=== PATIENT | male | born 1970 | race Caucasian/White ===

== ENCOUNTER 2018-12-10 15:15 | Emergency (ER) | payer OTHER ==
[2018-12-10 16:25] LABS: Absolute Lymphocytes (CBC) 2.2 K/uL (0.7-4.9); Absolute Monocytes 0.8 K/uL (0.1-1.3); Absolute Neutrophil 3.3 K/uL (1.8-8.0); Eosinophils % 5.2 % (0-4.4); Hematocrit 43.8 % (39.6-49.0); Lymphocytes % 33.1 % (15.3-44.8); Monocytes % 11.3 % (3.3-12.3); RBC Red Blood Cell Count 5.22 M/uL (4.33-5.43)
[2018-12-10] MEDS ORDERED: METOCLOPRAMIDE 10 MG/2mL INJ ONE (16:28)
[2018-12-10] MEDS ORDERED: DIPHENHYDRAMINE 50 MG/ML VIAL ONE (16:28)
[2018-12-10] MEDS ORDERED: ASPIRIN 81 MG CHEWABLE TABLET ONE (16:28)
--- NOTE | 2018-12-10 16:32 | RAD REPORT ---
EXAM DESCRIPTION: CT - Head Brain Wo Cont - 12/10/2018 4:17 pm CLINICAL HISTORY: Dizziness;Headache;Numbness COMPARISON: No comparisons TECHNIQUE: All CT scans are performed using dose optimization technique as appropriate and may inclu de automated exposure control or mA/KV adjustment according to patient size. FINDINGS: No intracranial hemorrhage, hydrocephalus or extra-axial fluid collection.No areas of brai n edema or evidence of midline shift. The paranasal sinuses and mastoids are clear. The calvarium is intact. IMPRESSION: No acute intracranial abnormality.
[2018-12-10 16:39] LABS: Protime INR 0.93
[2018-12-10 16:45] LABS: ALT/SGPT 57 U/L (12-78); AST/SGOT 28 U/L (15-37); Albumin 4.3 g/dL (3.4-5.0); Alkaline Phosphatase 70 U/L (45-117); BUN Blood Urea Nitrogen 25 mg/dL (7-18); Bicarbonate 27 mmol/L (21-32); Bilirubin Direct < 0.1 mg/dL (0-0.2); Bilirubin Total 0.3 mg/dL (0.2-1.0); Glucose Level 82 mg/dL (74-106); Magnesium 2.4 mg/dL (1.8-2.4); NT PRO-BNP 6 pg/mL (<125); Potassium 3.9 mmol/L (3.5-5.1); Protein, Total 7.5 g/dL (6.4-8.2); Sodium Level 144 mmol/L (136-145); Troponin (Emerg Dept Use Only) < 0.02 ng/mL (0.0-0.045)
--- NOTE | 2018-12-10 16:48 | RAD REPORT ---
EXAM DESCRIPTION: RAD - Chest Single View - 12/10/2018 4:16 pm CLINICAL HISTORY: CHEST PAIN Chest pain. COMPARISON: <Comparisons> FINDINGS: Portable technique limits examination quality. The lungs are grossly clear. The heart is normal in size. No displaced fractures. IMPRESSION: No acute intrathoracic process suspected.
[2018-12-10 16:56] LABS: Urine Blood NEGATIVE (NEG); Urine Glucose NEGATIVE (NEG); Urine Protein NEGATIVE (NEG); Urine Specific Gravity 1.025 (1.005-1.030)
--- NOTE | 2018-12-10 17:10 | EDPHYS ---
Physician Documentation [facility] Name: Jonathon Soliz Age: 48 yrs Sex: Male : 1970 Arrival Date: 12/10/2018 Time: 15:19 Bed 30 Private MD: Unknown, Unknown ED Physician Jonathon Champagne HPI: 12/10 16:50 This 48 yrs old Male presents to ER via Ambulatory with complaints of jr8 Numbness Of Face, Headache, Chest Pressure. 16:50 The patient complains of pain to the top of head and forehead. The patient describes jr8 the headache as throbbing. Onset: The symptoms/episode began/occurred acutely, today. Associated signs and symptoms: Pertinent positives: dizziness, paresthesias, chest tightness. Severity of symptoms: At its worst the pain was moderate, in the emergency department the pain is unchanged. Headache History: The patient has had previous headaches and this one is different than previous episodes. The symptoms are alleviated by nothing. the symptoms are aggravated by lights, movement, noise. The patient has not experienced similar symptoms in the past. The patient has not recently seen a physician. Patient with history of migraines and Meniere's disease. Stated that he has on/off migraines consistently that have been worsening. Stated that was recently put on Gabapentin for them but does not take it as he should. Stated that he is having another migraine but this time with perioral and nasal region numbness and chest tightness . Historical: - Allergies: 15:32 No Known Allergies; hj - PMHx: 15:32 None; hj - PSHx: 15:32 ganglion cyst rrmoval of the R arm; hj - Immunization history:: Adult Immunizations up to date. - Social history:: Smoking status: Patient/guardian denies using tobacco. - Ebola Screening: : No symptoms or risks identified at this time. ROS: 16:50 Eyes: Negative for injury, pain, redness, and discharge, ENT: Negative for injury, jr8 pain, and discharge, Neck: Negative for injury, pain, and swelling, Respiratory: Negative for shortness of breath, cough, wheezing, and pleuritic chest pain, Abdomen/GI: Negative for abdominal pain, nausea, vomiting, diarrhea, and constipation, Back: Negative for injury and pain, MS/Extremity: Negative for injury and deformity, Skin: Negative for injury, rash, and discoloration. 16:50 Cardiovascular: Positive for chest pain, Negative for edema, orthopnea, palpitations, paroxysmal nocturnal dyspnea. 16:50 Neuro: Positive for dizziness, headache, numbness. Exam: 16:50 Eyes: Pupils equal round and reactive to light, extra-ocular motions intact. Lids and jr8 lashes normal. Conjunctiva and sclera are non-icteric and not injected. Cornea within normal limits. Periorbital areas with no swelling, redness, or edema. ENT: Nares patent. No nasal discharge, no septal abnormalities noted. Tympanic membranes are normal and external auditory canals are clear. Oropharynx with no redness, swelling, or masses, exudates, or evidence of obstruction, uvula midline. Mucous membranes moist. Neck: Trachea midline, no thyromegaly or masses palpated, and no cervical lymphadenopathy. Supple, full range of motion without nuchal rigidity, or vertebral point tenderness. No Meningismus. Cardiovascular: Regular rate and rhythm with a normal S1 and S2. No gallops, murmurs, or rubs. Normal PMI, no JVD. No pulse deficits. Respiratory: Lungs have equal breath sounds bilaterally, clear to auscultation and percussion. No rales, rhonchi or wheezes noted. No increased work of breathing, no retractions or nasal flaring. Abdomen/GI: Soft, non-tender, with normal bowel sounds. No distension or tympany. No guarding or rebound. No evidence of tenderness throughout. Back: No spinal tenderness. No costovertebral tenderness. Full range of motion. Skin: Warm, dry with normal turgor. Normal color with no rashes, no lesions, and no evidence of cellulitis. MS/ Extremity: Pulses equal, no cyanosis. Neurovascular intact. Full, normal range of motion. Neuro: Awake and alert, GCS 15, oriented to person, place, time, and situation. Cranial nerves II-XII grossly intact. Motor strength 5/5 in all extremities. Sensory grossly intact. Cerebellar exam normal. Normal gait. Vital Signs: 15:32 BP 142 / 95; Pulse 66; Resp 18; Temp 98.3(TE); Pulse Ox 96% on R/A; Weight 115.67 kg; hj Height 5 ft. 11 in. (180.34 cm); Pain 6/10; 16:00 BP 115 / 76; Pulse 72; Resp 18 S; Temp 98.2(O); Pulse Ox 95% on R/A; ca1 16:46 BP 113 / 76; Pulse 61; Resp 16 S; Temp 98(O); Pulse Ox 95% on R/A; ca1 17:15 BP 114 / 75; Pulse 61; Resp 17 S; Temp 98; Pulse Ox 95% on R/A; ca1 15:32 Body Mass Index 35.57 (115.67 kg, 180.34 cm) hj NIH Stroke Scale Scores: 16:50 NIHSS Score: 0 jr8 MDM: 15:52 Patient medically screened. 8 17:07 Differential diagnosis: cluster headache, cerebral vascular accident, hyponatremia, jr8 intracerebral hemorrhage, migraine, neoplasm, sinusitis, subdural hematoma, tension headache, trigeminal neuralgia, chest pain, AK, chest wall pain, costochondritis, esophagitis, biliary colic, PE, Unstable Angina. Data reviewed: vital signs, nurses notes, lab test result(s), EKG, radiologic studies, CT scan, plain films. Data interpreted: Pulse oximetry: on room air is 95 %. Interpretation: normal. 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 Response to treatment: the patient's symptoms have mildly improved after treatment. 12/10 16:03 Order name: Basic Metabolic Panel [facility] 12/10 16:03 Order name: CBC with Diff; Complete Time: 16:49 12/10 16:03 Order name: LFT's 12/10 16:03 Order name: Magnesium; Complete Time: 16:49 12/10 16:03 Order name: NT PRO-BNP; Complete Time: 16:49 12/10 16:03 Order name: PT-INR; Complete Time: 17:09 12/10 16:03 Order name: Troponin (emerg Dept Use Only); Complete Time: 16:49 12/10 16:03 Order name: XRAY Chest (1 view); Complete Time: 16:49 [facility] 12/10 16:03 Order name: CT Head Brain wo Cont; Complete Time: 16:49 12/10 16:04 Order name: Basic Metabolic Panel; Complete Time: 16:49 EDMS 12/10 16:04 Order name: Liver (Hepatic) Function; Complete Time: 16:49 EDMS 12/10 16:36 Order name: Urine Dipstick--Ancillary (enter results); Complete Time: 17:02 eb 12/10 16:03 Order name: EKG; Complete Time: 16:04 [facility] 12/10 16:03 Order name: Cardiac monitoring; Complete Time: 16:12 [facility] 12/10 16:03 Order name: EKG - Nurse/Tech; Complete Time: 16:12 12/10 16:03 Order name: IV Saline Lock; Complete Time: 16:12 12/10 16:03 Order name: Labs collected and sent; Complete Time: 16:12 [facility] 12/10 16:03 Order name: O2 Per Protocol; Complete Time: 16:12 12/10 16:03 Order name: O2 Sat Monitoring; Complete Time: 16:12 Administered Medications: 16:20 Drug: Aspirin Chewable Tablet 324 mg Route: PO; ca1 17:28 Follow up: Response: No adverse reaction; Pain is decreased ca1 16:20 Drug: Reglan 10 mg Route: IVP; Site: right antecubital; ca1 17:28 Follow up: Response: No adverse reaction; Pain is decreased ca1 16:25 Drug: Benadryl 25 mg Route: IVP; Site: right antecubital; ca1 17:29 Follow up: Response: No adverse reaction; Pain is decreased ca1 Disposition: 12/11 06:57 Co-signature as Attending Physician, Jonathon Champagne MD I agree with the assessment and kdr plan of care. Disposition: 12/10/18 17:09 Discharged to Home. Impression: Chest pain, unspecified, Migraine. - Condition is Stable. - Discharge Instructions: Nonspecific Chest Pain, Migraine Headache. - Medication Reconciliation Form, Thank You Letter, Antibiotic Education, Prescription Opioid Use form. - Follow up: Private Physician; When: 2 - 3 days; Reason: Recheck today's complaints, Continuance of care, Re-evaluation by your physician. - Problem is new. - Symptoms have improved. NIH Stroke Scale - NIH Stroke Score Date: 12/10/2018 Time: 16:50 Total Score = 0 1a. Level of Consciousness (LOC) - 0(Alert) 1b. Level of Consciousness (LOC) (Year \T\ Age) - 0(Both) 1c. LOC Commands (Open \T\ Closes Eyes/[place] Debeader) - 0(Both) 2. Best Gaze (Lateral Gaze Paresis) - 0(Normal) 3. Visual Field Loss - 0(No visual loss) 4. Facial Palsy - 0(Normal) 5a. Left Arm: Motor (10-second hold) - 0(No drift) 5b. Right Arm: Motor (10-second hold) - 0(No drift) 6a. Left Leg: Motor (5-second hold - always test supine) - 0(No drift) 6b. Right Leg: Motor (5-second hold - always test supine) - 0(No drift) 7. Limb Ataxia (finger/nose \T\ heel/contreras - test with eyes open) - 0(Absent) 8. Sensory Loss (pinprick arms/legs/face) - 0(Normal) 9. Best Language: Aphasia (description/naming/reading) - 0(No aphasia) 10. Dysarthria (speech clarity - read or repeat words) - 0(Normal) 11. Extinction and Inattention (visual/tactile/auditory/spatial/personal) - 0(No abnormality) Initials: cuca Signatures: Dispatcher [employer] EDMS Jonathon Champagne MD MD [facility] Bud Garrett PA PA jr8 Vinod Lacy RN RN Dai Howard RN RN ca1 Corrections: (The following items were deleted from the chart) 12/10 17:30 17:09 12/10/2018 17:09 Discharged to Home. Impression: Chest pain, unspecified; ca1 Migraine. Condition is Stable. Forms are Medication Reconciliation Form, Thank You Letter, Antibiotic Education, Prescription Opioid Use. Follow up: Private Physician; When: 2 - 3 days; Reason: Recheck today's complaints, Continuance of care, Re-evaluation by your physician. Problem is new. Symptoms have improved. jrBenito
--- NOTE | 2018-12-10 17:10 | ER ---
Nurse's Notes [facility] Name: Jonathon Soliz Age: 48 yrs Sex: Male : 1970 Arrival Date: 12/10/2018 Time: 15:19 Bed 30 Private MD: Unknown, Unknown Diagnosis: Chest pain, unspecified;Migraine Presentation: 12/10 15:28 Presenting complaint: Patient states: around 4 am today, i have this headache and hj numbness on the face, more on the nose and lips; reports dizziness; reports heavy type of pain on the chest; denies radiating pain ; reports SOB;denies N/V; no facial droop; no drift on any extremities; A\T\O x 4 in triage;. Transition of care: patient was not received from another setting of care. Onset of symptoms was December 10, 2018. Risk Assessment: Do you want to hurt yourself or someone else? Patient reports no desire to harm self or others. Initial Sepsis Screen: Does the patient meet any 2 criteria? No. Patient's initial sepsis screen is negative. Does the patient have a suspected source of infection? No. Patient's initial sepsis screen is negative. Care prior to arrival: None. 15:28 Method Of Arrival: Ambulatory 15:28 Acuity: JOSE 3 hj Historical: - Allergies: 15:32 No Known Allergies; hj - PMHx: 15:32 None; hj - PSHx: 15:32 ganglion cyst rrmoval of the R arm; hj - Immunization history:: Adult Immunizations up to date. - Social history:: Smoking status: Patient/guardian denies using tobacco. - Ebola Screening: : No symptoms or risks identified at this time. Screenin:00 Abuse screen: Denies threats or abuse. Denies injuries from another. Nutritional ca1 screening: No deficits noted. Tuberculosis screening: No symptoms or risk factors identified. Fall Risk None identified. Assessment: 16:00 General: Appears in no apparent distress. comfortable, Behavior is calm, cooperative, ca1 appropriate for age. Pain: Complains of pain in chest Pain does not radiate. Pain currently is 6 out of 10 on a pain scale. Quality of pain is described as pressure, Pain began 0800 TODAY Is intermittent. Neuro: Level of Consciousness is awake, alert, obeys commands, Oriented to person, place, time, situation. Neuro: Reports headache. Cardiovascular: Heart tones S1 S2 present Capillary refill < 3 seconds Patient's skin is warm and dry. Rhythm is sinus rhythm. Respiratory: Airway is patent Respiratory effort is even, unlabored, Respiratory pattern is regular, symmetrical. GI: Abdomen is round non-distended, Bowel sounds present X 4 quads. Abd is soft and non tender Reports nausea. : No deficits noted. No signs and/or symptoms were reported regarding the genitourinary system. EENT: No deficits noted. No signs and/or symptoms were reported regarding the EENT system. Derm: Skin is intact, is healthy with good turgor, Skin is pink, warm \T\ dry. Musculoskeletal: Circulation, motion, and sensation intact. Capillary refill < 3 seconds. 16:46 Reassessment: Patient appears in no apparent distress at this time. Patient and/or ca1 family updated on plan of care and expected duration. Pain level reassessed. Patient is alert, oriented x 3, equal unlabored respirations, skin warm/dry/pink. 17:15 Reassessment: Patient appears in no apparent distress at this time. Patient is alert, ca1 oriented x 3, equal unlabored respirations, skin warm/dry/pink. Patient states feeling better. Vital Signs: 15:32 BP 142 / 95; Pulse 66; Resp 18; Temp 98.3(TE); Pulse Ox 96% on R/A; Weight 115.67 kg; Height 5 ft. 11 in. (180.34 cm); Pain 6/10; 16:00 BP 115 / 76; Pulse 72; Resp 18 S; Temp 98.2(O); Pulse Ox 95% on R/A; ca1 16:46 BP 113 / 76; Pulse 61; Resp 16 S; Temp 98(O); Pulse Ox 95% on R/A; ca1 17:15 BP 114 / 75; Pulse 61; Resp 17 S; Temp 98; Pulse Ox 95% on R/A; ca1 15:32 Body Mass Index 35.57 (115.67 kg, 180.34 cm) NIH Stroke Scale Scores: 16:50 NIHSS Score: 0 jr8 ED Course: 15:19 Patient arrived in ED. ag5 15:20 Unknown, Unknown is Private Physician. ag5 15:29 EKG done, by glass technician/installer. reviewed by Jonathon Champagne MD. 3 15:31 Triage completed. hj 15:33 Arm band placed on right wrist. hj 15:50 Bud Garrett PA is PHCP. jr8 15:50 Jonathon Champagne MD is Attending Physician. jr8 16:00 Patient has correct armband on for positive identification. Placed in gown. Bed in low ca1 position. Call light in reach. Side rails up X 1. groundwater monitoring technician on. Pulse ox on. NIBP on. Warm blanket given. 16:00 No provider procedures requiring assistance completed. Inserted saline lock: 18 gauge ca1 in right antecubital area, using aseptic technique. Blood collected. 16:06 Dai Howard, JACEY is Primary Nurse. ca1 16:15 X-ray completed. Portable x-ray completed in exam room. Patient tolerated procedure sw well. 16:16 XRAY Chest (1 view) In Process Unspecified. EDMS 16:17 CT Head Brain wo Cont In Process Unspecified. EDMS 16:17 CT completed. Patient tolerated procedure well. Patient moved to CT. Patient moved back sc from CT. 17:30 IV discontinued, intact, bleeding controlled, No redness/swelling at site. Pressure ca1 dressing applied. Administered Medications: 16:20 Drug: Aspirin Chewable Tablet 324 mg Route: PO; ca1 17:28 Follow up: Response: No adverse reaction; Pain is decreased ca1 16:20 Drug: Reglan 10 mg Route: IVP; Site: right antecubital; ca1 17:28 Follow up: Response: No adverse reaction; Pain is decreased ca1 16:25 Drug: Benadryl 25 mg Route: IVP; Site: right antecubital; ca1 17:29 Follow up: Response: No adverse reaction; Pain is decreased ca1 Outcome: 17:09 Discharge ordered by . jr8 17:30 Discharged to home ambulatory, with significant other. ca1 17:30 Condition: stable 17:30 Discharge instructions given to patient, Instructed on discharge instructions, follow up and referral plans. Demonstrated understanding of instructions, follow-up care. 17:30 Patient left the ED. ca1 NIH Stroke Scale - NIH Stroke Score Date: 12/10/2018 Time: 16:50 Total Score = 0 1a. Level of Consciousness (LOC) - 0(Alert) 1b. Level of Consciousness (LOC) (Year \T\ Age) - 0(Both) 1c. LOC Commands (Open \T\ Closes Eyes/Quarter Folder) - 0(Both) 2. Best Gaze (Lateral Gaze Paresis) - 0(Normal) 3. Visual Field Loss - 0(No visual loss) 4. Facial Palsy - 0(Normal) 5a. Left Arm: Motor (10-second hold) - 0(No drift) 5b. Right Arm: Motor (10-second hold) - 0(No drift) 6a. Left Leg: Motor (5-second hold - always test supine) - 0(No drift) 6b. Right Leg: Motor (5-second hold - always test supine) - 0(No drift) 7. Limb Ataxia (finger/nose \T\ heel/contreras - test with eyes open) - 0(Absent) 8. Sensory Loss (pinprick arms/legs/face) - 0(Normal) 9. Best Language: Aphasia (description/naming/reading) - 0(No aphasia) 10. Dysarthria (speech clarity - read or repeat words) - 0(Normal) 11. Extinction and Inattention (visual/tactile/auditory/spatial/personal) - 0(No abnormality) Initials: jr8 Signatures: Dispatcher [employer] EDMS Bud Garrett PA PA jr8 Julia Saucedo Henry, RN RN Tamir Chin Shakira 3 Dai Howard RN RN ca1 Jena, Kamaljit ag5 Corrections: (The following items were deleted from the chart) 15:33 15:32 Pulse 66bpm; Resp 18bpm; Pulse Ox 96% RA; Temp 98.3F Temporal; 115.67 kg; hj Height 5 ft. 11 in.; BMI: 35.5; Pain 6/10; hj 15:34 15:28 Presenting complaint: Patient states: around 4 am today, i have this hj headache and numbness on the face, more on the nose and lips; reports dizziness; reports heavy type of pain on the chest; denies radiating pain ; reports SOB;denies N/V; 16:45 16:00 Fall Risk ca1 ca1
--- NOTE | 2018-12-11 07:13 | EKG ---
Test Date: 2018-12-10 Test Time: 15:29:56 Dough Cutter: SWAPNA MEASUREMENT RESULTS: Intervals: Rate: 69 SD: 208 QRSD: 98 QT: 388 QTc: 415 [place]: P: 12 SD: 208 QRS: -27 T: 34 INTERPRETIVE STATEMENTS: Normal sinus rhythm Septal infarct, age undetermined Abnormal ECG No previous ECG available for comparison Electronically Signed On 12-11-18 07:11:24 CDT by Oleg Ibarra
== END 2018-12-10 17:30 | disposition home or self-care (01) ==
LOC: ER 15:15
DX: R07.9 Chest pain, unspecified (principal); G43.909 Migraine, unspecified, not intractable, without status migrainosus; H81.09 Meniere's disease, unspecified ear
CPT/HCPCS: 36415; 70450; 71045; 80048; 80076; 81003; 83735; 83880; 84484; 85025; 85610; 93005; 96374; 96375; 99285; J2765

== ENCOUNTER 2021-03-22 13:37 | Inpatient (IN) | payer OTHER ==
--- OUTSIDE RECORDS SUMMARY | 2021-03-22 13:40 | XMS REPORT | Continuity of Care Document ---
:1970 Author Organization [facility] t Address [address] [place] [address] Care Team Providers Name Role Phone Unavailable Unavailable Unavailable Problems This patient has no known problems. Allergies, Adverse Reactions, Alerts This patient has no known allergies or adverse reactions. Medications This patient has no known medications. Procedures This patient has no known procedures. Encounters Start End Encounter Admission Attending Care Care Encounter Source Date/Time Date/Time Type Type Clinicians Facility Department ID 2020-09-11 2020-09-11 Outpatient [facility] [id number] [facility] 00:00:00 00:00:00 [facility] 2020-08-29 2020-08-29 Outpatient [facility] [id number] [facility] 00:00:00 00:00:00 [facility] Results This patient has no known results.
[2021-03-22 15:02] LABS: Absolute Lymphocytes (CBC) 0.8 K/uL (0.7-4.9); Basophils % 0.8 % (0-1.3); Lymphocytes % 11.3 % (15.3-44.8); MPV 7.7 fL (7.6-11.3); RBC Red Blood Cell Count 4.89 M/uL (4.33-5.43)
[2021-03-22] MEDS ORDERED: dexAMETHasone 10 MG/ML VIAL ONE (15:10)
[2021-03-22 15:14] LABS: ALT/SGPT 33 U/L (12-78); AST/SGOT 28 U/L (15-37); Albumin 2.7 g/dL (3.4-5.0); Alkaline Phosphatase 112 U/L (45-117); BUN Blood Urea Nitrogen 25 mg/dL (7-18); Bicarbonate 27 mmol/L (21-32); Bilirubin Direct 0.3 mg/dL (0-0.2); Bilirubin Total 0.9 mg/dL (0.2-1.0); Glucose Level 99 mg/dL (74-106); Magnesium 2.7 mg/dL (1.8-2.4); NT PRO-BNP 153 pg/mL (<125); Potassium 3.1 mmol/L (3.5-5.1); Protein, Total 6.8 g/dL (6.4-8.2); Sodium Level 145 mmol/L (136-145); Troponin (Emerg Dept Use Only) < 0.02 ng/mL (0.0-0.045)
[2021-03-22 15:23] LABS: Protime INR 1.26
--- NOTE | 2021-03-22 15:45 | RAD REPORT ---
EXAM DESCRIPTION: RAD - Chest Single View - 03/22/2021 3:33 pm CLINICAL HISTORY: SOB Chest pain. COMPARISON: Chest Single View dated 12/10/2018 FINDINGS: Portable technique limits examination quality. There is moderate confluent bilateral pulmonary opacities are noted probably representing COVID-19 in fection. The heart is normal in size. No displaced fractures.
[2021-03-22] MEDS ORDERED: POTASSIUM CL SA 10 MEQ TAB PO ONE (16:12)
[2021-03-22 16:21] LABS: Ferritin 812.5 ng/mL (26-388)
--- NOTE | 2021-03-22 17:01 | RAD REPORT ---
EXAM DESCRIPTION: CT - Chest For Pe Angio - 03/22/2021 4:40 pm CLINICAL HISTORY: Chest pain. SOB COMPARISON: No comparisons TECHNIQUE: CT angiogram of the pulmonary arteries was performed with MIP. All CT scans are performed using dose optimization technique as appropriate and may include automated exposure control or mA/KV adjustment according to patient size. FINDINGS: No evidence of pulmonary thromboembolism. No acute aortic finding demonstrated. Moderate to severe bilateral confluent airspace opacities are present greatest in the lower lobes. Th is is most compatible with underlying COVID-19 infection. No significant pericardial or pleural fluid. No concerning bony finding. IMPRESSION: No evidence of pulmonary thromboembolism. Moderate to severe lung findings most compatible with COVID-19 infection.
--- NOTE | 2021-03-22 17:26 | EDPHYS ---
Physician Documentation [facility] Name: Jonathon Soliz Age: 50 yrs Sex: Male : 1970 Arrival Date: 03/22/2021 Time: 13:44 Bed 15 Private MD: ED Physician Israel Oh HPI: 03/22 14:17 This 50 yrs old Male presents to ER via Ambulatory with complaints of COVID+, jmm Breathing Difficulty. 14:17 Onset: The symptoms/episode began/occurred gradually, 11 day(s) ago. Duration: The jmm symptoms are continuous, and are steadily getting worse. The patient's shortness of breath is aggravated by exertion, light activity, walking. Associated signs and symptoms: Pertinent positives: non-productive cough, Pertinent negatives: hemoptysis. This is a 50-year-old male no chronic medical conditions presents emerged part with complaints of cough and progressively worsening shortness of breath over the past 11 days. Patient was evaluated in urgent care and prescribed azithromycin. Patient states he has experienced little relief. Patient states particular, that the shortness of breath is worse on exertion and he feels dizzy like he is about to pass out. Patient also complains of chest pain. Historical: - Allergies: 13:55 No Known Allergies; kg - Home Meds: 13:55 None [Active]; kg - PMHx: 13:55 None; kg - PSHx: 13:55 Vasectomy; Right wrist sx; Lasik eye sx; kg - Immunization history:: Adult Immunizations not up to date, Client reports having NOT received the Covid vaccine. - Social history:: Smoking status: Patient denies any tobacco usage or history of. Patient uses alcohol, occasionally. ROS: 14:17 Cardiovascular: Negative for chest pain, palpitations, and edema. jmm 14:17 Abdomen/GI: Negative for abdominal pain, nausea, vomiting, diarrhea, and constipation, Back: Negative for injury and pain. 14:17 Constitutional: Positive for body aches, fatigue. 14:17 Respiratory: Positive for shortness of breath. 14:17 Neuro: Positive for weakness. 14:17 All other systems are negative. Exam: 14:17 Constitutional: This is a well developed, well nourished patient who is awake, alert, jmm and in no acute distress. Head/Face: atraumatic. Eyes: EOMI, no conjunctival erythema appreciated ENT: Moist Mucus Membranes Neck: Trachea midline, Supple Chest/axilla: Normal chest wall appearance and motion. Cardiovascular: Regular rate and rhythm. No edema appreciated 14:17 Abdomen/GI: Non distended, soft Back: Normal ROM Skin: General appearance color normal MS/ Extremity: Moves all extremities, no obvious deformities appreciated, no edema noted to the lower extremities Neuro: Awake and alert, normal gait Psych: Behavior is normal, Mood is normal, Patient is cooperative and pleasant 14:17 Respiratory: mild respiratory distress is noted, Respirations: labored breathing, that is moderate, Breath sounds: decreased breath sounds, that are moderate, are scattered. 16:00 ECG was reviewed by the Attending Physician. rn Vital Signs: 13:51 BP 121 / 73; Pulse 66; Resp 28; Temp 98.8(O); Pulse Ox 90% on R/A; Weight 93.44 kg (R); kg Height 5 ft. 10 in. (177.80 cm) (R); Pain 7/10; 14:43 BP 117 / 64; Pulse 63; Resp 22; Pulse Ox 97% on 2 lpm NC; vg1 15:53 BP 119 / 67; Pulse 66; Resp 24; Pulse Ox 95% on 2 lpm NC; vg1 16:59 BP 137 / 80; Pulse 62; Resp 26; Pulse Ox 97% on 2 lpm NC; vg1 03/23 20:06 BP 143 / 84; Pulse 73; Resp 18; Pulse Ox 94% ; ms4 03/22 13:51 Body Mass Index 29.56 (93.44 kg, 177.80 cm) kg MDM: 03/22 14:51 Patient medically screened. [facility] 17:23 Data reviewed: vital signs, nurses notes. Counseling: I had a detailed discussion with [facility] the patient and/or guardian regarding: the historical points, exam findings, and any diagnostic results supporting the discharge/admit diagnosis, lab results, the need for further work-up and treatment in the hospital. ED course: I discussed the patient with Dr. Kelsey whom accepted the patient to his service. . 03/22 14:17 Order name: Basic Metabolic Panel; Complete Time: 15:17 [facility] 03/22 14:17 Order name: CBC with Diff; Complete Time: 15:19 [facility] 03/22 14:17 Order name: LFT's; Complete Time: 15:17 [facility] 03/22 14:17 Order name: Magnesium; Complete Time: 15:17 [facility] 03/22 14:17 Order name: NT PRO-BNP; Complete Time: 15:17 [facility] 03/22 14:17 Order name: PT-INR; Complete Time: 15:33 [facility] 03/22 14:17 Order name: Troponin (emerg Dept Use Only); Complete Time: 15:17 [facility] 03/22 14:17 Order name: D-Dimer; Complete Time: 15:33 [facility] 03/22 15:34 Order name: CRP; Complete Time: 16:23 [facility] 03/22 15:34 Order name: Ferritin; Complete Time: 16:23 [facility] 03/22 17:44 Order name: Comprehensive Metabolic Panel EDMS 03/22 17:44 Order name: Comprehensive Metabolic Panel; Complete Time: 15:20 [facility] 03/22 17:44 Order name: CBC with Automated Diff EDMS 03/22 17:44 Order name: CBC with Automated Diff; Complete Time: 15:20 EDMS 03/22 17:45 Order name: Ferritin EDMS 03/22 17:45 Order name: Ferritin EDMS 03/22 17:46 Order name: D-Dimer EDMS 03/22 17:46 Order name: D-Dimer; Complete Time: 15:20 EDMS 03/22 17:46 Order name: D-Dimer EDMS 03/22 17:46 Order name: Ferritin EDMS 03/22 17:46 Order name: Ferritin EDMS 03/22 17:46 Order name: Ferritin EDMS 03/22 17:46 Order name: Ferritin EDMS 03/22 17:46 Order name: Ferritin EDMS 03/22 17:46 Order name: Lactic Dehydrogenase EDMS 03/22 17:46 Order name: Lactic Dehydrogenase EDMS 03/22 17:46 Order name: Lactic Dehydrogenase EDMS 03/22 17:46 Order name: Lactic Dehydrogenase EDMS 03/22 17:46 Order name: Lactic Dehydrogenase EDMS 03/22 17:46 Order name: Lactic Dehydrogenase EDMS 03/22 14:17 Order name: EKG; Complete Time: 14:18 [facility] 03/22 14:17 Order name: Cardiac monitoring; Complete Time: 14:24 [facility] 03/22 14:17 Order name: EKG - Nurse/Tech; Complete Time: 14:41 [facility] 03/22 14:17 Order name: IV Saline Lock; Complete Time: 14:41 [facility] 03/22 14:17 Order name: Labs collected and sent; Complete Time: 14:41 [facility] 03/22 14:17 Order name: O2 Per Protocol; Complete Time: 14:24 [facility] 03/22 14:17 Order name: O2 Sat Monitoring; Complete Time: 14:24 [facility] 03/22 15:32 Order name: Chest Single View; Complete Time: 15:47 [facility] 03/22 15:34 Order name: CT Chest For PE Angio; Complete Time: 17:01 [facility] 03/22 17:44 Order name: Regular [facility] 03/22 17:46 Order name: Lactic Dehydrogenase [facility] 03/22 17:46 Order name: D-Dimer [facility] 03/22 17:46 Order name: D-Dimer [facility] 03/22 17:46 Order name: D-Dimer [facility] 03/22 17:46 Order name: D-Dimer [facility] 03/23 06:24 Order name: Lactic Dehydrogenase; Complete Time: 15:20 EDMS 03/23 06:38 Order name: Ferritin; Complete Time: 15:20 EDMS 03/23 08:03 Order name: Glucose, Ancillary Testing; Complete Time: 15:20 EDMS 03/23 12:39 Order name: Glucose, Ancillary Testing; Complete Time: 15:20 EDMS 03/23 17:22 Order name: Glucose, Ancillary Testing; Complete Time: 17:27 EDMS EC:00 Rate is 60 beats/min. Rhythm is regular. QRS [place] is Normal. ND interval is normal. QRS rn interval is normal. QT interval is normal. No Q waves. T waves are Normal. No ST changes noted. Clinical impression: Normal ECG. Interpreted by me. Reviewed by me. Administered Medications: 14:57 Drug: Decadron - Dexamethasone 10 mg Route: IVP; Site: right forearm; vg1 15:48 Follow up: Response: No adverse reaction; No change in condition vg1 15:53 Drug: Potassium Chloride 40 mEq Route: PO; vg1 17:24 Follow up: Response: No adverse reaction vg1 Disposition Summary: 03/22/21 17:26 Hospitalization Ordered Hospitalization Status: Observation [facility] Provider: Omitogun, Dominic jmm Condition: Stable jmm Problem: new jmm Symptoms: are unchanged jmm Bed/Room Type: Standard jmm Location: Telemetry/MedSurg (observation)(03/23/21 17:53) eb Room Assignment: 403(03/23/21 17:53) eb Diagnosis - Coronavirus infection, unspecified - Hypoxia jmm Forms: - Medication Reconciliation Form jmm - SBAR form jmm Addendum: 03/26/2021 07:02 Co-signature as Attending Physician, Israel Oh MD I agree with the assessment and r n plan of care. Attestation: The patient's history, exam findings, diagnostics, and a summary of any interventions or procedures was reviewed in detail with Kenrick MEYER. Signatures: Dispatcher [employer] EDKY Kenrick iVnson PA PA [facility] Israel Oh MD MD rn Botello, Elizabeth eb Garcia, Victoria RN RN vg1 Trim, John Paul tt3 Ramona Hines, RN RN kg Corrections: (The following items were deleted from the chart) 03/22 15:32 13:59 Chest Pa And Lat (2 Views)+[id number] ordered. EDKY EDMS 22:12 17:26 Telemetry/MedSurg (observation) jmm tt3 22:12 17:26 jmm tt3 22:12 22:12 tt3 tt3 03/23 17:53 03/22 22:12 [facility] ER HOLD tt3 eb 03/23 17:53 03/22 22:12 ERHOLD- tt3 eb
--- NOTE | 2021-03-22 17:26 | ER ---
Nurse's Notes [facility] Name: Jonathon Soliz Age: 50 yrs Sex: Male : 1970 Arrival Date: 03/22/2021 Time: 13:44 Bed 15 Private MD: Diagnosis: Coronavirus infection, unspecified-Hypoxia Presentation: 03/22 13:51 Chief complaint: Patient states: SOB, chest pain x 5 days. Pt was diagnosed 03/13 COVID kg + at Urgent care and received Z pack. Chief complaint:. Coronavirus screen: Client denies travel out of the [place] in the last 14 days. At this time, unable to obtain information related to travel outside the [place] Ebola Screen: Patient negative for fever greater than or equal to 101.5 degrees Fahrenheit, and additional compatible Ebola Virus Disease symptoms Patient denies exposure to infectious person. Patient denies travel to an Ebola-affected area in the 21 days before illness onset. Initial Sepsis Screen: Does the patient meet any 2 criteria? RR > 20 per min. No. Patient's initial sepsis screen is negative. Does the patient have a suspected source of infection? Yes: Productive cough/pneumonia No. Patient's initial sepsis screen is negative. Risk Assessment: Do you want to hurt yourself or someone else? Patient reports no desire to harm self or others. Onset of symptoms was March 17, 2021. 13:51 Method Of Arrival: Ambulatory kg 13:51 Acuity: JOSE 3 kg Triage Assessment: 13:55 General: Appears in no apparent distress. Behavior is calm, cooperative, appropriate kg for age, quiet. Pain: Complains of pain in chest and abdomen Pain radiates to Generalized. Respiratory: Reports shortness of breath cough that is non-productive, pain with respiration Pain is 8 out of 10 on a pain scale. Onset: The symptoms/episode began/occurred gradually, the patient has moderate shortness of breath. Historical: - Allergies: 13:55 No Known Allergies; kg - Home Meds: 13:55 None [Active]; kg - PMHx: 13:55 None; kg - PSHx: 13:55 Vasectomy; Right wrist sx; Lasik eye sx; kg - Immunization history:: Adult Immunizations not up to date, Client reports having NOT received the Covid vaccine. - Social history:: Smoking status: Patient denies any tobacco usage or history of. Patient uses alcohol, occasionally. Screenin:58 Abuse screen: Denies threats or abuse. Denies injuries from another. Nutritional kg screening: No deficits noted. Tuberculosis screening: No symptoms or risk factors identified. Fall Risk None identified. Assessment: 13:58 Respiratory: Airway is patent Trachea midline Respiratory effort is even, labored, kg shallow, Respiratory pattern is tachypnea. 14:42 General: Appears in no apparent distress. uncomfortable, Behavior is calm, cooperative. vg1 Pain: Complains of pain in chest Pain currently is 7 out of 10 on a pain scale. Neuro: Level of Consciousness is awake, alert, obeys commands, Oriented to person, place, time, situation. Cardiovascular: Rhythm is sinus rhythm. Respiratory: Reports shortness of breath at rest on exertion cough that is pain with cough pain with respiration Airway is patent Respiratory effort is even, labored, Respiratory pattern is tachypnea Breath sounds with crackles in right posterior lower lobe. GI: No signs and/or symptoms were reported involving the gastrointestinal system. : No signs and/or symptoms were reported regarding the genitourinary system. EENT: pt has hearing aids in left and right ear. Derm: Skin is intact, Skin is pink, warm \T\ dry. Musculoskeletal: Circulation, motion, and sensation intact. 15:53 Reassessment: Patient appears in no apparent distress at this time. No changes from vg1 previously documented assessment. Patient and/or family updated on plan of care and expected duration. Pain level reassessed. Patient is alert, oriented x 3, equal unlabored respirations, skin warm/dry/pink. 16:55 Reassessment: Patient appears in no apparent distress at this time. Patient and/or vg1 family updated on plan of care and expected duration. Pain level reassessed. Patient is alert, oriented x 3, equal unlabored respirations, skin warm/dry/pink. Pt stated went to restroom after CT scan and stated felt 'really winded'. Provider notified. 03/23 19:59 Reassessment: report given to JACEY Sim patient to be transported to 4th floor. ms4 Vital Signs: 03/22 13:51 BP 121 / 73; Pulse 66; Resp 28; Temp 98.8(O); Pulse Ox 90% on R/A; Weight 93.44 kg (R); kg Height 5 ft. 10 in. (177.80 cm) (R); Pain 7/10; 14:43 BP 117 / 64; Pulse 63; Resp 22; Pulse Ox 97% on 2 lpm NC; vg1 15:53 BP 119 / 67; Pulse 66; Resp 24; Pulse Ox 95% on 2 lpm NC; vg1 16:59 BP 137 / 80; Pulse 62; Resp 26; Pulse Ox 97% on 2 lpm NC; vg1 03/23 20:06 BP 143 / 84; Pulse 73; Resp 18; Pulse Ox 94% ; ms4 03/22 13:51 Body Mass Index 29.56 (93.44 kg, 177.80 cm) kg ED Course: 03/22 13:44 Patient arrived in ED. mr 13:55 Triage completed. kg 13:55 Arm band placed on right wrist. kg 13:58 Patient has correct armband on for positive identification. kg 13:58 No provider procedures requiring assistance completed. kg 14:17 Kenrick Vinson PA is PHCP. [facility] 14:17 Israel Oh MD is Attending Physician. [facility] 14:18 Rashmi Bernal, JACEY is Primary Nurse. vg1 14:38 EKG done, by ED staff, reviewed by Kenrick MEYER. dh3 14:43 Initial lab(s) drawn, by fl, sent to lab. Inserted saline lock: 20 gauge in right dh3 forearm, using aseptic technique. Blood collected. 15:32 Chest Single View In Process Unspecified. EDMS 16:40 CT Chest For PE Angio In Process Unspecified. EDMS 17:10 patient's oxygen was 98% on 2 Liters, during ambulation patient's oxygen dropped to 89% dh3 on room air. 17:25 Dominic Snow MD is Hospitalizing Provider. [facility] 03/23 06:32 Primary Nurse role handed off by Rashmi Bernal, RN eb Administered Medications: 03/22 14:57 Drug: Decadron - Dexamethasone 10 mg Route: IVP; Site: right forearm; vg1 15:48 Follow up: Response: No adverse reaction; No change in condition vg1 15:53 Drug: Potassium Chloride 40 mEq Route: PO; vg1 17:24 Follow up: Response: No adverse reaction vg1 Outcome: 17:26 Decision to Hospitalize by Provider. melly 03/23 20:17 Patient left the ED. ms4 Signatures: Dispatcher [employer] EDMS Kenrick Vinson PA PA [facility] Edilma Trujillo, Marilu 3 Aliya Ortega Victoria, RN RN vg1 Ramona Hines RN RN kg Yelitza Ferrer RN RN ms4 Corrections: (The following items were deleted from the chart) 03/22 16:24 15:53 BP 199 / 67; Pulse 66bpm; Resp 24bpm; Pulse Ox 95% 2 lpm Nasal Cannula; vg1 vg1 16:48 14:42 EENT: No signs and/or symptoms were reported regarding the EENT system. vg1 vg1
[2021-03-22] MEDS ORDERED: ACETAMINOPHEN 325 MG TABLET PO PRN (17:39)
[2021-03-22] MEDS ORDERED: ONDANSETRON 4 MG/2 ML VIAL IV PRN (17:40)
--- NOTE | 2021-03-22 17:55 | P.HP ---
Certification for Inpatient Patient admitted to: Inpatient With expected LOS: >2 Midnights Patient will require the following post-hospital care: None Practitioner: I am a practitioner with admitting privileges, knowledge of patient current condition, hospital course, and medical plan of care. Services: Services provided to patient in accordance with Admission requirements found in Title 42 Section 412.3 of the Code of Federal Regulations Patient History Date of Service: 03/22/21 Reason for admission: COVID-19 disease. History of Present Illness: 50-year-old male patient was no significant medical history who was evaluated for episode of worsening shortness of breath in the ER. He had issues with lethargy mildly and worsening cough and shortness of breath for the past 10 days. He was tested for COVID-19 disease on 13 March and he had used a Z-Pack on outpatient but did not improve so he decided to come to the ER. He has some difficulty breathing and chest pain on deep inspiration. He also has loss of appetite, mild diarrhea and general malaise. He denies overt episode of nausea, vomiting, headaches. He denies overt fever or chills. He had a chest x-ray done that revealed significant opacification of the lung field and had slightly reduced oxygen saturation of 88% on room. he was put on supplemental oxygen and he was asked to be admitted for inpatient care. Home medications list reviewed: Yes - Past Medical/Surgical History Diabetic: No Past Medical History: Patient denies medical history Review of Systems General: Weakness, Malaise Eyes: Unremarkable ENT: Nose Congestion Respiratory: Cough, Shortness of Breath, Pleuritic Pain Cardiovascular: Chest Pain Gastrointestinal: Other (poor appetite.), Unremarkable Genitourinary: Unremarkable Musculoskeletal: Unremarkable Neurological: Unremarkable Physical Examination - Vital Signs Temperature: 98.7 F Blood Pressure: 151/71 Pulse: 67 Respirations: 34 - Physical Exam General: Alert, Oriented x3, Mild distress HEENT: Atraumatic, Normocephalic Neck: Supple Respiratory: Diminished Cardiovascular: Regular rate/rhythm, Normal S1 S2 Gastrointestinal: Soft and benign Musculoskeletal: No swelling Neurological: Normal speech, Normal strength at 5/5 x4 extr, Cranial nerves 3-12 intact - Studies Laboratory Data (last 24 hrs) 03/22/21 14:43: PT 14.5 H, INR 1.26 03/22/21 14:43: WBC 6.60, Hgb 13.7, Hct 41.0, Plt Count 311 03/22/21 14:43: Sodium 145, Potassium 3.1 L, BUN 25 H, Creatinine 0.85, Glucose 99, Magnesium 2.7 H, Total Bilirubin 0.9, AST 28, ALT 33, Alkaline Phosphatase 112 Assessment and Plan - Plan COVID-19 disease: Patient has significant opacification in lung field and symptomatology. We have started dexamethasone, zinc, melatonin, vitamin C therapy. We will continue ceftriaxone for management of possible superimposed pneumonia. We will continue supplemental oxygen and wean off as tolerated. We will encourage proning We will also continue incentive spirometry In view of his elevated elevated D-dimer we will have him on Lovenox 40 mg every 12 subcut. We will monitor inflammatory markers and daily basis. Respiratory failure with hypoxia: Supplemental oxygen started for issues with moderate hypoxia We will wean off oxygen as tolerated. Hypokalemia: Potassium was low 3.1 on admission. 40mEq of potassium given by mouth. Will monitor closely on daily basis and replete as needed. Discharge Plan: Home - Advance Directives Does patient have a Living Will: No Does patient have a Durable POA for Healthcare: No
[2021-03-22 18:56] VITALS: BMI 29.4
[2021-03-22] MEDS ORDERED: ENOXAPARIN 40 MG/0.4 ML SQ ONE (19:25)
[2021-03-22] MEDS ORDERED: CEFTRIAXONE/SWI 1gm 1 GM/10 ML SYR ONE (19:25)
[2021-03-22] MEDS: CEFTRIAXONE/SWI 1gm 1 GM/10 ML SYR IVP SCH (20:03)
[2021-03-22] MEDS: ENOXAPARIN 40 MG/0.4 ML SQ SCH (20:04)
[2021-03-22] MEDS: MELATONIN 5 MG TABLET PO SCH (21:00)
[2021-03-22] MEDS: ASCORBIC ACID 500 MG TABLET PO SCH (21:00)
[2021-03-22] MEDS: FAMOTIDINE 20 MG/2 ML VIAL IV SCH (21:00)
[2021-03-22] MEDS ORDERED: ASCORBIC ACID 500 MG TABLET ONE (22:02)
[2021-03-22] MEDS ORDERED: MELATONIN 5 MG TABLET PO ONE (22:02)
[2021-03-22] MEDS ORDERED: FAMOTIDINE 20 MG/2 ML VIAL IV ONE (22:03)
[2021-03-23 04:09] LABS: Absolute Lymphocytes (CBC) 0.5 K/uL (0.7-4.9); Basophils % 0.1 % (0-1.3); Lymphocytes % 12.4 % (15.3-44.8); MPV 7.4 fL (7.6-11.3); RBC Red Blood Cell Count 4.38 M/uL (4.33-5.43)
[2021-03-23 06:24] LABS: ALT/SGPT 31 U/L (12-78); AST/SGOT 21 U/L (15-37); Albumin 2.4 g/dL (3.4-5.0); Alkaline Phosphatase 116 U/L (45-117); BUN Blood Urea Nitrogen 26 mg/dL (7-18); Bicarbonate 27 mmol/L (21-32); Bilirubin Total 0.5 mg/dL (0.2-1.0); Glucose Level 143 mg/dL (74-106); Protein, Total 6.3 g/dL (6.4-8.2); Sodium Level 143 mmol/L (136-145)
[2021-03-23 06:38] LABS: Ferritin 670.2 ng/mL (26-388)
--- NOTE | 2021-03-23 08:58 | P.PN ---
Subjective Date of Service: 03/23/21 Chief Complaint: COVID-19 disease. Subjective: No new changes, Improving, Doing well Physical Examination - Vital Signs Temperature: 99.3 F Blood Pressure: 131/84 Pulse: 62 Respirations: 24 Pulse Ox (%): 95 - Physical Exam General: Alert, Oriented x3 HEENT: Atraumatic, Normocephalic Neck: Supple Respiratory: Clear to auscultation bilaterally, Normal air movement Cardiovascular: Regular rate/rhythm, Normal S1 S2 Gastrointestinal: Soft and benign Musculoskeletal: No swelling Integumentary: No rashes Neurological: Normal speech, Normal strength at 5/5 x4 extr, Cranial nerves 3-12 intact - Studies Laboratory Data (last 24 hrs) 03/22/21 14:43: PT 14.5 H, INR 1.26 03/22/21 14:43: WBC 6.60, Hgb 13.7, Hct 41.0, Plt Count 311 03/22/21 14:43: Sodium 145, Potassium 3.1 L, BUN 25 H, Creatinine 0.85, Glucose 99, Magnesium 2.7 H, Total Bilirubin 0.9, AST 28, ALT 33, Alkaline Phosphatase 112 Assessment And Plan - Plan COVID-19 disease: Patient has significant opacification in lung field and symptomatology. We have started dexamethasone, zinc, melatonin, vitamin C therapy. Singulair and baricitinib added to therapy. We will continue ceftriaxone for management of pneumonia. We will continue supplemental oxygen and wean off as tolerated. We will encourage proning. We will also continue incentive spirometry we will continue lovenox therapy. We will monitor inflammatory markers and daily basis. Respiratory failure with hypoxia: Supplemental oxygen started for issues with moderate hypoxia We will wean off oxygen as tolerated. Hypokalemia: Potassium is better today at 4.0. Will monitor closely on daily basis and replete as needed. Discharge Plan: Home
[2021-03-23] MEDS: ENOXAPARIN 40 MG/0.4 ML SQ SCH ×2 (09:00→21:00)
[2021-03-23] MEDS: CEFTRIAXONE/SWI 1gm 1 GM/10 ML SYR IVP SCH (09:00)
[2021-03-23] MEDS ORDERED: CEFTRIAXONE 1 GM/NS 50 ML 1 GM/50 ML BAG IV SCH (09:00)
[2021-03-23] MEDS: dexAMETHasone 10 MG/ML VIAL IV SCH (09:00)
[2021-03-23] MEDS: ASCORBIC ACID 500 MG TABLET PO SCH ×2 (09:00→21:00)
[2021-03-23] MEDS: FAMOTIDINE 20 MG/2 ML VIAL IV SCH ×2 (09:00→21:00)
[2021-03-23] MEDS: ZINC SULFATE 220 MG CAP PO SCH (09:00)
[2021-03-23] MEDS ORDERED: ZINC SULFATE 220 MG CAP ONE (09:25)
[2021-03-23] MEDS ORDERED: dexAMETHasone 10 MG/ML VIAL ONE (09:25)
[2021-03-23] MEDS ORDERED: ASCORBIC ACID 500 MG TABLET ONE (09:25)
[2021-03-23] MEDS ORDERED: ENOXAPARIN 40 MG/0.4 ML SQ ONE (09:26)
[2021-03-23] MEDS ORDERED: FAMOTIDINE 20 MG/2 ML VIAL IV ONE (09:27)
[2021-03-23] MEDS ORDERED: CEFTRIAXONE/SWI 1gm 1 GM/10 ML SYR ONE (09:28)
--- NOTE | 2021-03-23 11:11 | EKG ---
Test Date: 2021-03-22 Test Time: 14:35:39 Yarn Conditioner: MARCO MEASUREMENT RESULTS: Intervals: Rate: 60 WY: 200 QRSD: 102 QT: 446 QTc: 446 [place]: P: 28 WY: 200 QRS: 12 T: 8 INTERPRETIVE STATEMENTS: Normal sinus rhythm Septal infarct, age undetermined Abnormal ECG Compared to ECG 12/10/2018 15:29:56 No significant changes Electronically Signed On 03-23-21 11:07:47 CDT by Oleg Ibarra
[2021-03-23] MEDS: MONTELUKAST 10 MG TAB PO SCH (12:00)
[2021-03-23] MEDS ORDERED: MORPHINE 2 MG/ML SYR IV PRN (15:13)
[2021-03-23] MEDS ORDERED: MORPHINE 2 MG/ML SYR ONE (17:42)
[2021-03-23] MEDS ORDERED: BENZONATATE 100 MG CAP PO PRN (20:36)
[2021-03-23] MEDS: MELATONIN 5 MG TABLET PO SCH (21:00)
[2021-03-24 07:30] LABS: Ferritin 409.2 ng/mL (26-388)
[2021-03-24 08:24] LABS: C-Reactive Protein 25.2 mg/L (<3.00); Magnesium 2.3 mg/dL (1.8-2.4)
[2021-03-24 08:39] LABS: Absolute Lymphocytes (CBC) 1.2 K/uL (0.7-4.9); Basophils % 0.6 % (0-1.3); Hematocrit 37.6 % (39.6-49.0); Lymphocytes % 12.1 % (15.3-44.8); MPV 7.7 fL (7.6-11.3); RBC Red Blood Cell Count 4.45 M/uL (4.33-5.43)
[2021-03-24] MEDS ORDERED: BARICITINIB 2 MG TABLET PO SCH (09:00)
[2021-03-24] MEDS: FAMOTIDINE 20 MG/2 ML VIAL IV SCH (09:00)
[2021-03-24] MEDS: ASCORBIC ACID 500 MG TABLET PO SCH (09:54)
[2021-03-24] MEDS: ZINC SULFATE 220 MG CAP PO SCH (09:55)
[2021-03-24] MEDS: MONTELUKAST 10 MG TAB PO SCH (09:55)
[2021-03-24] MEDS: ENOXAPARIN 40 MG/0.4 ML SQ SCH (09:55)
[2021-03-24] MEDS: CEFTRIAXONE/SWI 1gm 1 GM/10 ML SYR IVP SCH (09:55)
[2021-03-24] MEDS: dexAMETHasone 10 MG/ML VIAL IV SCH (09:55)
--- NOTE | 2021-03-24 13:14 | P.DS ---
Admission Date: 03/22/21 Discharge Date: 03/24/21 Disposition: ROUTINE DISCHARGE Discharge Condition: GOOD Reason for Admission: COVID-19 disease. Procedures: CXR (03/22): Moderate confluent bilateral pulmonary opacities are noted probably representing COVID-19 infection. Heart is normal in size. No displaced fractures CTA chest (03/22): FINDINGS: No evidence of pulmonary thromboembolism. No acute aortic finding demonstrated. Moderate to severe bilateral confluent airspace opacities are present greatest in the lower lobes. This is most compatible with underlying COVID-19 infection. No significant pericardial or pleural fluid. No concerning bony finding. IMPRESSION: No evidence of pulmonary thromboembolism. Moderate to severe lung findings most compatible with COVID-19 infection. Problem list Acute hypoxemic respiratory failure secondary to COVID-19 pneumonia Hypokalemia, resolved Brief History of Present Illness: 50-year-old male patient was no significant medical history who was evaluated for episode of worsening shortness of breath in the ER. He had issues with lethargy mildly and worsening cough and shortness of breath for the past 10 days. He was tested for COVID-19 disease on 13 March and he had used a Z-Pack on outpatient but did not improve so he decided to come to the ER. He has some difficulty breathing and chest pain on deep inspiration. He also has loss of appetite, mild diarrhea and general malaise. He denies overt episode of nausea, vomiting, headaches. He denies overt fever or chills. He had a chest x-ray done that revealed significant opacification of the lung field and had slightly reduced oxygen saturation of 88% on room. he was put on supplemental oxygen and he was asked to be admitted for inpatient care. Hospital Course: Patient had significant improvement in his symptoms and oxygen requirement with treatment per Covid protocol. Patient received steroids, vitamin supplementation, oxygen supplementation, and baricitinib. On day of discharge he was maintaining oxygen saturation greater than 90% intermittently on room air and at times requiring 2 L nasal cannula. CTA chest was done as noted above, no PE. He is discharged home to continue treatment and with oxygen supplementation. He is to follow-up with Dr. Mane in 1 week. He was advised to take it easy over the next week. To quarantine, and stay home from work. He is to follow-up with his PCP or Dr. Mane in the next week for release to work. Vital Signs/Physical Exam: Temp Pulse Resp BP Pulse Ox 98.5 F 52 18 136/67 96 03/24/21 08:00 03/24/21 08:00 03/24/21 08:00 03/24/21 08:00 03/24/21 08:00 General: Alert, In no apparent distress, Oriented x3 HEENT: Sclerae nonicteric Respiratory: Other (Nonlabored respirations on 2 L nasal cannula) Cardiovascular: No edema, Regular rate/rhythm Gastrointestinal: Soft and benign, Non-distended, No tenderness Musculoskeletal: No erythema, No tenderness Integumentary: No rashes Neurological: Normal speech, Normal affect Laboratory Data at Discharge: WBC 9.80 K/uL (4.3-10.9) D 03/24/21 07:22 Hgb 12.7 g/dL (13.6-17.9) L 03/24/21 07:22 Hct 37.6 % (39.6-49.0) L 03/24/21 07:22 Plt Count 399 K/uL (152-406) 03/24/21 07:22 PT 14.5 SECONDS (9.5-12.5) H 03/22/21 14:43 INR 1.26 03/22/21 14:43 Sodium 144 mmol/L (136-145) 03/24/21 07:22 Potassium 4.0 mmol/L (3.5-5.1) 03/24/21 07:22 BUN 28 mg/dL (7-18) H 03/24/21 07:22 Creatinine 1.06 mg/dL (0.55-1.3) 03/24/21 07:22 Glucose 115 mg/dL (74-106) H 03/24/21 07:22 Magnesium 2.3 mg/dL (1.8-2.4) 03/24/21 07:22 Total Bilirubin 0.5 mg/dL (0.2-1.0) 03/23/21 03:46 AST Cancelled 03/24/21 08:00 ALT Cancelled 03/24/21 08:00 Alkaline Phosphatase 116 U/L (45-117) 03/23/21 03:46 Home Medications: Triamterene/Hydrochlorothiazid [Triamterene-Hctz 37.5-25 mg Cp] 1 each PO DAILY 03/23/21 Ascorbic Acid [Vitamin C*] 500 mg PO BID 30 Days #60 tablet 03/24/21 Aspirin [Low Dose Aspirin EC] 2 tab PO DAILY 30 Days #60 tablet. 03/24/21 Benzonatate [Tessalon Perle*] 100 mg PO TID 7 Days #21 cap 03/24/21 Benzonatate [Tessalon Perle*] 100 mg PO TID PRN #0 cap 03/24/21 Montelukast [Singulair*] 10 mg PO DAILY 30 Days #30 tab 03/24/21 Zinc Sulfate [Zinc Sulfate*] 220 mg PO DAILY 30 Days #30 cap 03/24/21 dexAMETHasone [Dexamethasone] 6 mg PO DAILY 10 Days #10 tablet 03/24/21 New Medications: dexAMETHasone [Dexamethasone] 6 mg PO DAILY 10 Days #10 tablet Aspirin [Low Dose Aspirin EC] 2 tab PO DAILY 30 Days #60 tablet. Montelukast [Singulair*] 10 mg PO DAILY 30 Days #30 tab Benzonatate [Tessalon Perle*] 100 mg PO TID PRN #0 cap PRN Reason: Cough Benzonatate [Tessalon Perle*] 100 mg PO TID 7 Days #21 cap Ascorbic Acid [Vitamin C*] 500 mg PO BID 30 Days #60 tablet Zinc Sulfate [Zinc Sulfate*] 220 mg PO DAILY 30 Days #30 cap Physician Discharge Instructions: You were found to have COVID-19 pneumonia. You had improvement with steroids, vitamin supplementation, and oxygen supplementation. You are discharged home to continue with this treatment. Recommend taking 162mg aspirin daily for 30 days. 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 Call his office to schedule the appointment. Diet: Regular Activity: Ad rd Followup: Loy Luis, [Primary Care Provider] - Time spent managing pt's care (in minutes): 40
[2021-03-24 16:26] VITALS: BP 128/73; TEMP 98.2
[2021-03-24 16:54] VITALS: O2SAT 95
== END 2021-03-24 17:25 | disposition home or self-care (01) | DRG 177 ==
LOC: ER 13:37 → ERHOLD 17:41 → 4TH 03-23 20:00
PROVIDERS: ADMIT Internal Medicine Nephrology; ATTEND Internal Medicine Nephrology
DX: U07.1 COVID-19 (principal); J12.82 Pneumonia due to coronavirus disease 2019; J96.01 Acute respiratory failure with hypoxia; E87.6 Hypokalemia
CPT/HCPCS: 36415; 71045; 71275; 80048; 80053; 80076; 82728; 82947; 83615; 83735; 83880; 84450; 84460; 84484; 85025; 85379; 85610; 86140; 93005; 96374; 99284; J0696; J1100; J1650; J2270; Q9967

== ENCOUNTER 2021-10-23 17:30 | Emergency (ER) | payer OTHER ==
--- OUTSIDE RECORDS SUMMARY | 2021-10-23 17:33 | XMS REPORT | Continuity of Care Document ---
:1970 Author Organization [facility] t Address [address] [place] [address] Care Team Providers Name Role Phone Aroldo Andrews Primary Care Physician Unavailable Dorcas Luis Attending Clinician Unavailable PAU Attending Clinician Unavailable Tremayne MARINELLI Attending Clinician Unavailable SERA Attending Clinician Unavailable Tremayne Marinelli MD Attending Clinician PAU Admitting Clinician Unavailable JANINE MACE Admitting Clinician Unavailable Payers Payer Name Policy Type Policy Number Effective Date Expiration Date [facility] [id number] [place] [facility] Problems This patient has no known problems. Allergies, Adverse Reactions, Alerts This patient has no known allergies or adverse reactions. Social History Social Habit Start Date Stop Date Quantity Comments Source Exposure to Not sure [facility] e SARS-CoV-2 (event) of Med icine History [facility] ge Alcohol Frequency of Medi cine History [facility] ge Alcohol Std Drinks of Med icine History [facility] Alcohol Binge of Medicine Alcohol intake 2021-08-09 2021-08-09 .14 /d [facility] lege 00:00:00 00:00:00 of Medicine Tobacco Comment 2021-04-19 2021-04-19 quit in the [facility] 00:00:00 00:00:[address] [facility] Alcohol Comment 2021-04-19 2021-04-19 approx. every [facility] 00:00:00 00:00:00 other week of Medicine Cigarettes smoked 2021-04-19 2021-04-19 [facility] current (pack per 00:00:00 00:00:00 of [facility] iSSimple day) - Reported Tobacco use and 2021-04-19 2021-04-19 Smokeless tobacco Ba or [facility] exposure 00:00:00 00:00:00 non-user of Medicine Cigarette 2021-04-19 2021-04-19 [facility] pack-years 00:00:00 00:00:00 of Medicine History SDOH 2021-04-18 2021-04-18 5 [facility] ge Physical Activity 00:00:00 00:00:00 of [facility] iSSimple DPW History SDOH 2021-04-18 2021-04-18 4 [facility] ge Physical Activity 00:00:00 00:00:00 of [facility] iSSimple MPS History of tobacco 1989-03-04 Smoker [facility] use 00:00:00 of Medicine Sex Ass[birth year] M [facility] 00:00:00 00:00:00 of Medicine Smoking Status Start Date Stop Date Source Ex-smoker 2021-04-19 00:00:00 2021-04-19 00:00:00 [facility] sonya of Medicine Medications Ordered Filled Start Stop Current Ordering Indication Dosage Frequency Signature Comments Components Source Medication Medication Date Date Medication? Clinician (SIG) Name Name betahistine Yes 1{capsu Take 1 B [facility]ylor 8 MG 1-06 le} capsule by College capsule 00:00: mouth two of 00 times Medicin daily. e betahistine 2020-08 Yes 1{capsu Take 1 B [facility] 8 MG 0-06 le} capsule by College capsule 00:00: mouth of 00 daily. Medicin e betahistine 2020-08- No 1{capsu Take 1 [facility] 8 MG 0-06 01-06 le} capsule by College capsule 00:00: 00:00 mouth of 00 :00 daily. Medicin e Aspirin 81 Yes 2{tbl} 2 Tablets. [facility] MG tablet 8- College 00:00: of 00 Medicin e ascorbic Yes TWICE [facility] acid 500 MG 8-21 DAILY College tablet 00:00: of 00 Medicin e montelukast Yes DAILY [facility] (SINGULAIR) 8 College 10 MG 00:00: of tablet 00 Medicin e zinc 0 Yes DAILY [facility] sulfate 03-24 College (ZINCATE) 00:00: of 220 (50 Zn) 00 Medicin MG capsule e Aspirin 81 2020-0 Yes 2{tbl} 2 Tablets. [facility] MG tablet 03-24 College 00:00: of 00 Medicin e ascorbic 0 Yes TWICE [facility] acid 500 MG 03-24 DAILY College tablet 00:00: of 00 Medicin e montelukast 0 Yes DAILY [facility] (SINGULAIR) 03-24 College 10 MG 00:00: of tablet 00 Medicin e zinc 0 Yes DAILY [facility] sulfate 03-24 College (ZINCATE) 00:00: of 220 (50 Zn) 00 Medicin MG capsule e Aspirin 81 0 Yes 2{tbl} 2 Tablets. [facility] MG tablet 03-24 College 00:00: of 00 Medicin e ascorbic 0 Yes TWICE [facility] acid 500 MG 03-24 DAILY College tablet 00:00: of 00 Medicin e zinc 0 Yes DAILY [facility] sulfate 03-24 College (ZINCATE) 00:00: of 220 (50 Zn) 00 Medicin MG capsule e Aspirin 81 0 Yes 2{tbl} 2 Tablets. [facility] MG tablet 03-24 College 00:00: of 00 Medicin e ascorbic 0 Yes TWICE [facility] acid 500 MG 03-24 DAILY College tablet 00:00: of 00 Medicin e zinc 2020-0 Yes DAILY [facility] sulfate 03-24 College (ZINCATE) 00:00: of 220 (50 Zn) 00 Medicin MG capsule e montelukast 0 2020- No DAILY [facility] (SINGULAIR) 03-24 10-06 College 10 MG 00:00: 00:00 of tablet 00 :00 Medicin e triamterene 0 Yes DAILY [facility] -hydrochlor 03-23 College othiazide 00:00: of (DYAZIDE) 00 Medicin 37.5-25 MG e per capsule triamterene 2020-0 Yes DAILY [facility] -hydrochlor 03-23 [facility] othiazide 00:00: of (DYAZIDE) 00 Medicin 37.5-25 MG e per capsule triamterene 2020-0 Yes DAILY [facility] -hydrochlor 03-23 [facility] othiazide 00:00: of (DYAZIDE) 00 Medicin 37.5-25 MG e per capsule triamterene 0 Yes DAILY [facility] -hydrochlor 8 [facility] othiazide 00:00: of (DYAZIDE) 00 Medicin 37.5-25 MG e per capsule Vital Signs Vital Name Observation Time Observation Value Comments Source Systolic blood 2021-08-09 14:36:00 142 mm[Hg] [facility] Medicine Diastolic blood 2021-08-09 14:36:00 91 mm[Hg] [facility] Medicine Heart rate 2021-08-09 14:36:00 63 /min [facility] ollege of [facility] Body temperature 2021-08-09 14:36:00 37.06 [facility] Body height 2021-08-09 14:36:00 177.8 cm [facility] ol[facility] Body weight 2021-08-09 14:36:00 104[facility]327 [facility] BMI 2021-08-09 14:36:00 33.00 kg/m2 [facility] Systolic blood 2021-05-09 16:06:00 117 mm[Hg] [facility] Medicine Diastolic blood 2021-05-09 16:06:00 77 mm[Hg] [facility] Medicine Heart rate 2021-05-09 16:06:00 71 /min [facility] ollege of Medicine Body height 2021-05-09 16:06:00 177.8 cm [facility] ol[facility] of [facility] Body weight 2021-05-09 16:06:00 95.255 kg [facility] BMI 2021-05-09 16:06:00 30.13 kg/m2 [facility] ollege of Medicine Systolic blood 2021-04-19 14:27:00 122 mm[Hg] [facility] Medicine Diastolic blood 2021-04-19 14:27:00 83 mm[Hg] [facility] Medicine Heart rate 2021-04-19 14:27:00 64 /min [facility] ollege of Medicine Body height 2021-04-19 14:27:00 177.8 cm [facility] ollege of Medicine Body weight 2021-04-19 14:27:00 95.255 kg [facility] BMI 2021-04-19 14:27:00 30.13 kg/m2 [facility] Procedures This patient has no known procedures. Plan of Care Planned Activity Planned Date Details Comments Source Future Scheduled 2021-08-09 Hepatitis C screening Ba [facility] Test 08:35:38 (procedure) [code = Medicine 876930580] Future Scheduled 2021-08-09 Human immunodeficiency B [facility] Test 08:35:38 virus screening Medicine (procedure) [code = 438920506] Future Scheduled 2021-08-09 ZOSTER VACCINE (1 of 2) [facility] Test 08:35:38 [code = ZOSTER VACCINE (1 Me dicine of 2)] Future Scheduled 2021-08-09 FLU VACCINE > 6 MONTHS B [facility] Test 08:35:38 [code = FLU VACCINE > 6 Medi cine MONTHS] Future Scheduled 2021-08-09 Screening for malignant [facility] Test 08:35:38 neoplasm of colon Medicine (procedure) [code = 638138492] Future Scheduled 2021-08-09 COVID-19 Vaccine (1) [facility] Test 08:35:38 [code = COVID-19 Vaccine Med icine (1)] Future Scheduled 2021-08-09 TETANUS SHOT (ADULT) [facility] of Test 08:35:38 [code = TETANUS SHOT Medicin e (ADULT)] Future Scheduled 2021-08-09 BMI FOLLOW UP PLAN [code [facility] of Test 08:35:38 = BMI FOLLOW UP PLAN] Medici ne Future Scheduled 2021-05-09 COVID-19 Vaccine (1) [facility] of Test 11:45:04 [code = COVID-19 Vaccine Med icine (1)] Future Scheduled 2021-05-09 TETANUS SHOT (ADULT) [facility] of Test 11:45:04 [code = TETANUS SHOT Medicin e (ADULT)] Future Scheduled 2021-05-09 BMI FOLLOW UP PLAN [code [facility] of Test 11:45:04 = BMI FOLLOW UP PLAN] Medici ne Future Scheduled 2021-05-09 Hepatitis C screening [facility] Test 11:45:04 (procedure) [code = Medicine [id number]] Future Scheduled 2021-05-09 Human immunodeficiency B [facility] Test 11:45:04 virus screening Medicine (procedure) [code = 143032325] Future Scheduled 2021-05-09 ZOSTER VACCINE (1 of 2) [facility] Test 11:45:04 [code = ZOSTER VACCINE (1 Me dicine of 2)] Future Scheduled 2021-05-09 FLU VACCINE > 6 MONTHS B [facility] Test 11:45:04 [code = FLU VACCINE > 6 Medi cine MONTHS] Future Scheduled 2021-05-09 Screening for malignant [facility] of Test 11:45:04 neoplasm of colon Medicine (procedure) [code = 669650175] Future Scheduled 2021-04-19 Screening for malignant [facility] Test 08:00:46 neoplasm of colon Medicine (procedure) [code = 985265836] Future Scheduled 2021-04-19 COVID-19 Vaccine (1) [facility] Test 08:00:46 [code = COVID-19 Vaccine Med icine (1)] Future Scheduled 2021-04-19 TETANUS SHOT (ADULT) [facility] Test 08:00:46 [code = TETANUS SHOT Medicin e (ADULT)] Future Scheduled 2021-04-19 Hepatitis C screening [facility] Test 08:00:46 (procedure) [code = Medicine [id number]] Future Scheduled 2021-04-19 Human immunodeficiency B [facility] Test 08:00:46 virus screening Medicine (procedure) [code = 828765642] Future Scheduled 2021-04-19 ZOSTER VACCINE (1 of 2) [facility] Test 08:00:46 [code = ZOSTER VACCINE (1 Me dicine of 2)] Future Scheduled 2021-04-19 FLU VACCINE > 6 MONTHS B [facility] Test 08:00:46 [code = FLU VACCINE > 6 Medi cine MONTHS] Future Scheduled 2021-04-19 Screening for malignant [facility] of Test 08:00:46 neoplasm of colon Medicine (procedure) [code = 728676232] Future Scheduled 2021-04-19 COVID-19 Vaccine (1) [facility] Test 08:00:46 [code = COVID-19 Vaccine Med icine (1)] Future Scheduled 2021-04-19 TETANUS SHOT (ADULT) [facility] of Test 08:00:46 [code = TETANUS SHOT Medicin e (ADULT)] Future Scheduled 2021-04-19 Hepatitis C screening Ba [facility] 08:00:46 (procedure) [code = Medicine 063693674] Future Scheduled 2021-04-19 Human immunodeficiency B [facility] 08:00:46 virus screening Medicine (procedure) [code = 801309619] Future Scheduled 2021-04-19 ZOSTER VACCINE (1 of 2) [facility] 08:00:46 [code = ZOSTER VACCINE (1 Me dicine of 2)] Future Scheduled 2021-04-19 FLU VACCINE > 6 MONTHS B [facility] 08:00:46 [code = FLU VACCINE > 6 Medi cine MONTHS] Encounters Start End Encounter Admission Attending Care Care Encounter Source Date/Time Date/Time Type Type Clinicians Facility Department ID 2021-08-29 Outpatient [facility] [id number] [facility] 12:25:36 [facility] [address] [facility] 2021-10-17 2021-10-17 Outpatient [facility] [id number] 00:00:00 00:00:00 SVETANG 332 Method i 2021-10-02 2021-10-02 Outpatient [facility] [id number] 00:00:00 00:00:00 SVETANG 787 Method i 2021-09-28 2021-09-28 Outpatient [facility] [id number] 00:00:00 00:00:00 SVETANG 668 Method i 2021-09-26 2021-09-26 Outpatient [facility] [id number] 00:00:00 00:00:[address] 2021-08-09 2021-08-09 Office DIMITRI MARINELLI [id number] [facility] 08:08:30 09:35:11 Visit ELLIE AMBULATOR [id number] College Y 0.2.7.2.686 of [id number] [facility] pushpa 800 e 2021-05-09 2021-05-09 Office DIMITRI MARINELLI [id number] [facility] 10:53:00 12:14:51 Visit ELLIE AMBULATOR [id number] College Y 0.2.7.2.686 of [id number] [facility] 800 e 2021-05-09 2021-05-09 Outpatient DIMITRI ZAMORA [facility] [id number] [facility] 09:57:58 12:14:41 IVONE Huerta e of Medicin e 2021-05-09 2021-05-09 Outpatient ISIS [facility] [id number] [facility] 07:57:08 10:17:52 ELLIE Huerta e of Medicin e 2021-04-19 2021-04-19 Office Isis [facility] [id number] [facility] 08:50:28 09:05:28 Visit Ellie Casper AMBULATOR [id number] College Y 0.2.7.2.686 of [id number] [facility] 800 e 2020-09-11 2020-09-11 Outpatient [facility] [id number] [facility] 00[facility] 00[facility]:00 kes - [facility] ent Clinics 2020-08-29 2020-08-29 Outpatient [facility] [id number] [facility]00 [facility] ent Clinics Results Test Description Test Time Test Comments Results Result Comments Source SARS-CoV-2 (COVID-19) RNA [Presence] in Respiratory sp ecimen by 2021-09-28 20:22:52 GALLO with probe detection Test Item Value Reference Range Interpretation Comme nts SARS-CoV-2 (COVID-19) RNA [Presence] in Respiratory specimen by Not detected GALLO with probe detection (test code = 31405-3) Whether patient is employed in a healthcare setting (test code = Un known 65059-7) Whether the patient has symptoms related to condition of interest U nknown (test code = 18122-0) Whether the patient was hospitalized for condition of interest Unkn own (test code = 69412-6) Whether the patient was admitted to intensive care unit (ICU) for U nknown condition of interest (test code = 06281-0) Whether patient resides in a congregate care setting (test code = U nknown 43348-6) status (test code = 83503-5) Unknown Date and time of symptom onset (test code = 91440-1) Unknown SARS-CoV-2 (COVID-19) RNA [Presence] in Respiratory specimen by GALLO with probe [id number] 20:22:52 Test Item Value Reference Range Interpretation Comments SARS coronavirus RNA [Presence] Not detected in Isolate by GALLO with probe detection (test code = 97088-9) Whether patient is employed in a Unknown healthcare setting (test code = 34415-1) Whether the patient has symptoms Unknown related to condition of interest (test code = 59358-6) Whether the patient was Unknown hospitalized for condition of interest (test code = 62459-7) Whether the patient was admitted Unknown to intensive care unit (ICU) for condition of interest (test code = 56806-2) Whether patient resides in a Unknown congregate care setting (test code = 38178-3) status (test code = Unknown 53611-6) Date and time of symptom onset Unknown (test code = 87013-3)
[2021-10-23] MEDS ORDERED: FENTANYL CITR 100 MCG/2 ML ONE ×2 (17:56→19:50)
[2021-10-23] MEDS ORDERED: ONDANSETRON 4 MG/2 ML VIAL ONE (17:56)
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
--- NOTE | 2021-10-23 18:34 | RAD REPORT ---
EXAM DESCRIPTION: Mary Single View10/23/2021 6:19 pm CLINICAL HISTORY: Chest pain COMPARISON: 2020 FINDINGS: The lungs appear clear of acute infiltrate. The heart is normal size IMPRESSION: No acute abnormalities displayed
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
[2021-10-23 23:05] VITALS: TEMP 97.6
[2021-10-23 23:07] VITALS: BP 117/75; O2SAT 100
== END 2021-10-23 21:03 | disposition home or self-care (01) ==
LOC: ER 17:30
DX: G89.11 Acute pain due to trauma (principal); M79.605 Pain in left leg; V59.40XA Driver of pick-up truck or van injured in collision with unspecified motor vehicles in traffic accident, initial encounter
CPT/HCPCS: 71250; 72125; 71045; 73030; 73590; 99284; J3010 ×2; J2405

== ENCOUNTER 2022-08-05 20:51 | Emergency (ER) | payer OTHER ==
--- OUTSIDE RECORDS SUMMARY | 2022-08-05 20:56 | XMS REPORT | Continuity of Care Document ---
:1970 Author Organization [facility] t Address [address] [place] [address] Care Team Providers Name Role Phone Brendan Andrews Primary Care Physician Unavailable Loy Luis Attending Clinician Unavailable GABRIELA MAI Attending Clinician Unavailable Gela Gonzalez MA Attending Clinician Unavailable Giovanna Cano MD Attending Clinician Kaya Shah NP Attending Clinician [phone] Charmaine Urbina MA Attending Clinician Unavailable ELLIE MARINELLI Attending Clinician Unavailable IVONE ZAMORA Attending Clinician Unavailable Ellie Marinelli MD Attending Clinician GABRIELA MAI Admitting Clinician Unavailable JANINE MACE Admitting Clinician Unavailable Payers Payer Name Policy Type Policy Number Effective Date Expiration Date Yomi cuenca AETNA 53 [id number] 2021 Common 00:00:00 [facility] AETNA 53 [id number] 2020 Common 00:00:00 [facility] [employer] [id number] [employer] - CCN Problems Condition Condition Condition Status Onset Resolution Last Treating Co mments Source Name Details Category Date Date Treatment Clinician Date Colon Colon Disease Active Overview: [facility] [address] [facility] screening 00:00: g of this H ospita 00 note l might be different from the original. Added automatic ally from request for surgery [id number] Family Family Disease Active Overview: Method i history of history of 2-[address] colonic colonic 00:00: g of this Hospi ta polyps polyps 00 note l might be different from the original. Added automatic ally from request for surgery [id number] Current Problem Active Common moderate Spirit episode of - [facility] major [facility] depressive [facility] disorder Medical without Center prior episode [id number] Dependence Problem Active Co mmon on other Spirit enabling - [facility] machines and [facility] devices [facility] [id number] Morbid Problem Active Common (severe) Spirit obesity - [facility] due to excess [facility] calories [facility] [id number] PTSD Problem Active Common (post-trau Spirit matic - [facility] stress St disorder) [facility] [id number] Obstructiv Problem Active Com mon e sleep Spirit apnea - [facility]I (adult) (pediatric [facility] ) [facility] [id number] Body mass Problem Active Com mon index Spirit [BMI] - CHI 35.0-35.9, adult [facility] Allergies, Adverse Reactions, Alerts This patient has no known allergies or adverse reactions. Family History Family Member Diagnosis Comments Start Date Stop Date Source Natural [facility] mother Thyroid disease [facility] Social History Social Habit Start Date Stop Date Quantity Comments Source History of Tobacco Common Spirit - Use [facility] Exposure to Not sure [facility] SARS-CoV-2 (event) of Med icine History SDOH [facility] Std Drinks Hospit al History SDOH [facility] Binge [facility] Alcohol intake 2021-10-05 2021-10-05 Current drinker [facility] 00:00:00 00:00:00 of alcohol Hospital (finding) History SDOH 2021-10-01 2021-10-01 1 [facility] Frequency 00:00:00 00:00:00 Hospita l Alcohol Comment 2021-10-01 2021-10-01 1 every 3 months [facility] 00:00:00 00:00:00 Hospital Tobacco use and 2021-09-26 2021-09-26 Smokeless tobacco [facility] exposure 00:00:00 00:00:00 non-user Hospital Tobacco Comment 2021-04-19 2021-04-19 quit in the [facility] 00:00:00 00:00:00 of [facility] Cigarettes smoked 2021-04-19 2021-04-19 [facility] current (pack per 00:00:00 00:00:00 of day) - Reported Cigarette 2021-04-19 2021-04-19 [facility] pack-years 00:00:00 00:00:00 of Medicine History SDOH 2021-04-18 2021-04-18 5 [facility] ge Physical Activity 00:00:00 00:00:00 of DPW History SDOH 2021-04-18 2021-04-18 4 [facility] ge Physical Activity 00:00:00 00:00:00 of MPS Sex [birth year] [facility] 00:00:[facility] 00[facility]00 Hospital Smoking Status Start Date Stop Date Source Former Smoker 2021-11-09 00:00:00 2021-11-09 00:00:00 Common S pirit - [facility] Ce nter Never smoked tobacco [facility] Medications Ordered Filled Start Stop Current Ordering Indication Dosage Frequency Signature Comments Components Source Medication Medication Date Date Medication? Clinician (SIG) Name Name CHOLECALCIF Yes QD Take by Met dyaln MARIELENA, 3-[address] VITAMIN D3, 03:05: daily. Hosp rain ORAL 25 l Lactobacill Yes Take by Met dylan us 3-[address] acidophilus 03:05: Hospit a (PROBIOTIC 25 l ORAL) ASHWAGANDHA Yes Take by Met dylan ROOT 3-[address] EXTRACT 03:05: Hospita ORAL 25 l hydrocortis 2021- No [id number] 25mg QD Insert 1 Methodi one 10-04 03-[address] (ANUSOL-HC) 00:00: 04:59 y (25 mg H ospita 25 mg 00 :00 total) l suppository into the rectum nightly for 14 days. sod Yes 1{kit} Q.5D Take 1 kit Metho di picosulf-ma 2-[address] g ox-citric 00:00: (two) Hospi ta ac 00 times a l (Clenpiq) day. Take 10 mg-3.5 one bottle gram -12 twice a gram/160 mL day as solution directed testosteron Yes Q7D once a Meth irena e cypionate 2-[address] (DEPOTESTOT 00:00: Hospit a ERONE 00 l CYPIONATE) 200 mg/mL injection betahistine Yes 1{capsu Take 1 [facility] 8 MG 1-06 le} capsule by College capsule 00:00: mouth two of 00 times Medicin daily. e betahistine 2020-08 Yes 1{capsu Take 1 [facility] 8 MG 0-06 le} capsule by College capsule 00:00: mouth of 00 daily. Medicin e betahistine 2020-08- No 1{capsu Take 1 [facility] 8 MG 0-06 01-06 le} capsule by College capsule 00:00: 00:00 mouth of 00 :00 daily. Medicin e Aspirin 81 Yes 2{tbl} 2 Tablets. [facility] MG tablet 03-24 College 00:00: of 00 Medicin e ascorbic Yes TWICE [facility] acid 500 MG 03-24 DAILY College tablet 00:00: of 00 Medicin e montelukast 0 Yes DAILY [facility] (SINGULAIR) 03-24 College 10 MG 00:00: of tablet 00 Medicin e zinc Yes DAILY [facility] sulfate 03-24 College (ZINCATE) 00:00: of 220 (50 Zn) 00 Medicin MG capsule e Aspirin 81 Yes 2{tbl} 2 Tablets. [facility] MG tablet 03-24 College 00:00: of 00 Medicin e ascorbic Yes TWICE [facility] acid 500 MG 03-24 DAILY College tablet 00:00: of 00 Medicin e montelukast 0 Yes DAILY [facility] (SINGULAIR) 03-24 College 10 MG 00:00: of tablet 00 Medicin e zinc Yes DAILY [facility] sulfate 03-24 College (ZINCATE) 00:00: of 220 (50 Zn) 00 Medicin MG capsule e Aspirin 81 Yes 2{tbl} 2 Tablets. [facility] MG tablet 03-24 College 00:00: of 00 Medicin e ascorbic 2021-0 Yes TWICE [facility] acid 500 MG 03-24 DAILY College tablet 00:00: of 00 Medicin e zinc 2020-0 Yes DAILY [facility] sulfate 03-24 [place] (ZINCATE) 00:00: of 220 (50 Zn) 00 Medicin MG capsule e Aspirin 81 2020-0 Yes 2{tbl} 2 Tablets. [facility] MG tablet 03-24 College 00:00: of 00 Medicin e ascorbic 2020-0 Yes TWICE [facility] acid 500 MG 03-24 DAILY College tablet 00:00: of 00 Medicin e zinc 2020-0 Yes DAILY [facility] sulfate 03-24 [place] (ZINCATE) 00:00: of 220 (50 Zn) 00 Medicin MG capsule e montelukast 0 2020- No DAILY [facility] (SINGULAIR) 03-24 10 [place] 10 MG 00:00: 00:00 of tablet 00 :00 Medicin e triamterene 2020-0 Yes DAILY [facility] -hydrochlor 03-23 [place] othiazide 00:00: of (DYAZIDE) 00 Medicin 37.5-25 MG e per capsule triamterene 2020-0 Yes DAILY [facility] -hydrochlor 03-23 [place] othiazide 00:00: of (DYAZIDE) 00 Medicin 37.5-25 MG e per capsule triamterene 2020-0 Yes DAILY [facility] -hydrochlor 20 [place] othiazide 00:00: of (DYAZIDE) 00 Medicin 37.5-25 MG e per capsule triamterene 2020-0 Yes DAILY [facility] -hydrochlor 20 [place] othiazide 00:00: of (DYAZIDE) 00 Medicin 37.5-25 MG e per capsule triamterene 2020-0 Yes QD daily. Meth irena -hydrochlor 03-23 othiazid 00:00: Hospita (DYAZIDE) 00 l 37.5-25 mg per capsule Probiotic Probiotic No Probiotic Multi Multi No Multi Vitamin Vitamin Vitamin Elaine Root Elaine Root No Elaine Root Testosteron Testosteron No Testostero e e ne Probiotic Probiotic No Probiotic Multi Multi No Multi Vitamin Vitamin Vitamin Triamterene Triamterene No 1{table QD Triamteren -HCTZ -HCTZ t_in_ e-HCTZ 37.5-25 MG 37.5-25 MG e_morni 37.5-25 MG ng} Propranolol Propranolol No Propranolo HCl HCl l HCl buPROPion buPROPion No 1{table QD buPROPion HCl ER HCl ER t_in_th HCl ER (Smoking (Smoking e_morni (Smoking Det) 150 MG Det) 150 MG ng} Det) 150 MG cyclobenzap cyclobenzap No cyclobenza rine rine stefania Elaine Root Elaine Root No Elaine Root Testosteron Testosteron No Testostero e e ne Probiotic Probiotic No Probiotic Multi Multi No Multi Vitamin Vitamin Vitamin Triamterene Triamterene No 1{table QD Triamteren -HCTZ -HCTZ t_in_th e-HCTZ 37.5-25 MG 37.5-25 MG e_morni 37.5-25 MG ng} Propranolol Propranolol No Propranolo HCl HCl l HCl buPROPion buPROPion No 1{table QD buPROPion HCl ER HCl ER t_in_th HCl ER (Smoking (Smoking e_morni (Smoking Det) 150 MG Det) 150 MG ng} Det) 150 MG cyclobenzap cyclobenzap No cyclobenza rine rine stefania Elaine Root Elaine Root No Elaine Root Testosteron Testosteron No Testostero e e ne Probiotic Probiotic No Probiotic Multi Multi No Multi Vitamin Vitamin Vitamin Triamterene Triamterene No 1{table QD Triamteren -HCTZ -HCTZ t_in_th e-HCTZ 37.5-25 MG 37.5-25 MG e_morni 37.5-25 MG ng} Propranolol Propranolol No Propranolo HCl HCl l HCl buPROPion buPROPion No 1{table QD buPROPion HCl ER HCl ER t_in_th HCl ER (Smoking (Smoking e_morni (Smoking Det) 150 MG Det) 150 MG ng} Det) 150 MG cyclobenzap cyclobenzap No cyclobenza rine rine stefania Elaine Root Elaine Root No Elaine Root Vital Signs Vital Name Observation Time Observation Value Comments Source height 2021-11-09 08:40:00 71 [in_i] Common S pirit [facility] weight 2021-11-09 08:40:00 241.5 [lb_av] Common Spirit [facility] temperature 2021-11-09 08:40:00 97.5 [degF] Common S pirit - [facility] bmi 2021-11-09 08:40:00 33.68 kg/m2 Common S pirit [facility] oximetry 2021-11-09 08:40:00 97 % Common S pirit - [facility] respiratory rate 2021-11-09 08:40:00 17 /min Comm on Spirit - [facility] blood pressure 2021-11-09 08:40:00 135 mm[Hg] Common Spirit - systolic [facility] blood pressure 2021-11-09 08:40:00 87 mm[Hg] Common [facility] - diastolic [facility] Systolic blood 2021-08-09 14:36:00 142 mm[Hg] [facility] Medicine Diastolic blood 2021-08-09 14:36:00 91 mm[Hg] [facility] Medicine Heart rate 2021-08-09 14:36:00 63 /min [facility] Body temperature 2021-08-09 14:36:[address] [facility] Body height 2021-08-09 14:36:00 177.8 cm [facility] of [facility] Body weight 2021-08-09 14:36:00 104.327 kg [facility] BMI 2021-08-09 14:36:00 33.00 [facility]2 [facility] Systolic blood 2021-05-09 16:06:00 117 mm[Hg] [facility] Medicine Diastolic blood 2021-05-09 16:06:00 77 mm[Hg] [facility] Medicine Heart rate 2021-05-09 16:06:00 71 /min [facility] Body height 2021-05-09 16:06:00 177.8 cm [facility] Body weight 2021-05-09 16:06:00 95.255 kg [facility] BMI 2021-05-09 16:06:00 30.13 kg/m2 [facility] Systolic blood 2021-04-19 14:27:00 122 mm[Hg] [facility] Medicine Diastolic blood 2021-04-19 14:27:00 83 mm[Hg] [facility] Medicine Heart rate 2021-04-19 14:27:00 64 /min [facility] Body height 2021-04-19 14:27:00 177.8 cm [facility] Body weight 2021-04-19 14:27:00 95.255 kg [facility] BMI 2021-04-19 14:27:00 30.13 kg/m2 [facility] Systolic blood 2021-10-02 18:19:00 109 mm[Hg] [facility] pressure Diastolic blood 2021-10-02 18:19:00 65 mm[Hg] [facility] pressure Heart rate 2021-10-02 18:19:00 70 /min [facility] Respiratory rate 2021-10-02 18:19:00 15 /min [facility] Oxygen saturation in 2021-10-02 18:19:00 95 /min [facility] Arterial blood by Pulse oximetry Body temperature 2021-10-02 17:48:00 36.61 [facility] Body height 2021-10-02 16:57:00 177.8 cm [facility] Body weight 2021-10-02 16:57:00 104.327 kg [facility] BMI 2021-10-02 16:57:00 33.00 kg/m2 [facility] Procedures Procedure Date / Time Performed Performing Clinician [facility] e SURGICAL PATHOLOGY 2021-10-02 21:30:00 [facility] REQUEST COLONOSCOPY 2021-10-02 17:20:00 [facility] COVID-19 QUALITATIVE 2021-09-28 19:13:00 Haley Mace [facility] RT-PCR Plan of Care Planned Activity Planned Date Details Comments Source Future Scheduled 2022-07-23 COVID-19 VACCINE (#1) [facility] Test 13:28:08 [code = COVID-19 VACCINE Hos pital (#1)] Future Scheduled 2022-07-23 Hepatitis C screening [facility] Test 13:28:08 (procedure) [code = Hospital [id number]] Future Scheduled 2022-07-23 SHINGLES VACCINES (1 of [facility] Test 13:28:08 2) [code = SHINGLES Hospital VACCINES (1 of 2)] Future Scheduled 2022-07-23 INFLUENZA VACCINE [code = [facility] Test 13:28:08 INFLUENZA VACCINE] Hospital Future Scheduled 2022-07-23 COLONOSCOPY SCREENING [facility] Test 13:28:08 [code = COLONOSCOPY Hospital SCREENING] Future Scheduled 2021-08-09 Hepatitis C screening Ba [facility] Test 08:35:38 (procedure) [code = Medicine 331965362] Future Scheduled 2021-08-09 Human immunodeficiency B [facility] Test 08:35:38 virus screening Medicine (procedure) [code = 830362160] Future Scheduled 2021-08-09 ZOSTER VACCINE (1 of 2) [facility] Test 08:35:38 [code = ZOSTER VACCINE (1 Me dicine of 2)] Future Scheduled 2021-08-09 FLU VACCINE > 6 MONTHS B [facility] Test 08:35:38 [code = FLU VACCINE > 6 Medi cine MONTHS] Future Scheduled 2021-08-09 Screening for malignant [facility] of Test 08:35:38 neoplasm of colon Medicine (procedure) [code = 446897795] Future Scheduled 2021-08-09 COVID-19 Vaccine (1) [facility] of Test 08:35:38 [code = COVID-19 Vaccine Med icine (1)] Future Scheduled 2021-08-09 TETANUS SHOT (ADULT) [facility] of Test 08:35:38 [code = TETANUS SHOT Medicin e (ADULT)] Future Scheduled 2021-08-09 BMI FOLLOW UP PLAN [code [facility] of Test 08:35:38 = BMI FOLLOW UP PLAN] Medici ne Future Scheduled 2021-05-09 Screening for malignant [facility] of Test 11:45:04 neoplasm of colon Medicine (procedure) [code = 383711468] Future Scheduled 2021-05-09 COVID-19 Vaccine (1) [facility] of Test 11:45:04 [code = COVID-19 Vaccine Med icine (1)] Future Scheduled 2021-05-09 TETANUS SHOT (ADULT) [facility] of Test 11:45:04 [code = TETANUS SHOT Medicin e (ADULT)] Future Scheduled 2021-05-09 BMI FOLLOW UP PLAN [code [facility] of Test 11:45:04 = BMI FOLLOW UP PLAN] Medici ne Future Scheduled 2021-05-09 Hepatitis C screening [facility] Test 11:45:04 (procedure) [code = Medicine 223409806] Future Scheduled 2021-05-09 Human immunodeficiency B [facility] Test 11:45:04 virus screening Medicine (procedure) [code = 635031741] Future Scheduled 2021-05-09 ZOSTER VACCINE (1 of 2) [facility] Test 11:45:04 [code = ZOSTER VACCINE (1 Me dicine of 2)] Future Scheduled 2021-05-09 FLU VACCINE > 6 MONTHS B [facility] of Test 11:45:04 [code = FLU VACCINE > 6 Medi cine MONTHS] Future Scheduled 2021-04-19 Screening for malignant [facility] Test 08:00:46 neoplasm of colon Medicine (procedure) [code = 690341504] Future Scheduled 2021-04-19 COVID-19 Vaccine (1) [facility] Test 08:00:46 [code = COVID-19 Vaccine Med icine (1)] Future Scheduled 2021-04-19 TETANUS SHOT (ADULT) [facility] of Test 08:00:46 [code = TETANUS SHOT Medicin e (ADULT)] Future Scheduled 2021-04-19 Hepatitis C screening [facility] Test 08:00:46 (procedure) [code = Medicine 517376235] Future Scheduled 2021-04-19 Human immunodeficiency B [facility] Test 08:00:46 virus screening Medicine (procedure) [code = 828681196] Future Scheduled 2021-04-19 ZOSTER VACCINE (1 of 2) [facility] of Test 08:00:46 [code = ZOSTER VACCINE (1 Me dicine of 2)] Future Scheduled 2021-04-19 FLU VACCINE > 6 MONTHS [facility] of Test 08:00:46 [code = FLU VACCINE > 6 Medi cine MONTHS] Future Scheduled 2021-04-19 Screening for malignant [facility] of Test 08:00:46 neoplasm of colon Medicine (procedure) [code = 124423586] Future Scheduled 2021-04-19 COVID-19 Vaccine (1) [facility] Test 08:00:46 [code = COVID-19 Vaccine Med icine (1)] Future Scheduled 2021-04-19 TETANUS SHOT (ADULT) [facility] Test 08:00:46 [code = TETANUS SHOT Medicin e (ADULT)] Future Scheduled 2021-04-19 Hepatitis C screening Ba [facility] 08:00:46 (procedure) [code = Medicine 662028744] Future Scheduled 2021-04-[address] [facility] 08:00:46 virus screening Medicine (procedure) [code = 394876243] Future Scheduled 2021-04-19 ZOSTER VACCINE (1 of 2) [facility] 08:00:46 [code = ZOSTER VACCINE (1 Me dicine of 2)] Future Scheduled 2021-04-19 FLU VACCINE > [address] [facility] 08:00:46 [code = FLU VACCINE > 6 Medi cine MONTHS] Encounters Start End Encounter Admission Attending Care Care Encounter Source Date/Time Date/Time Type Type Clinicians Facility Department ID 2022-02-27 Out[facility] [id number] Common 14:25:02 Loy [id number] [facility] 2021-11-09 Outpatient Luis, [facility] [id number] Common 08:27:02 Loy [id number] [facility] 2021-08-29 Outpatient Luis, STLC [facility] [id number] Common 12:25:36 Loy [id number] [facility] 2021-11-23 2021-11-23 (TEL) [facility] [id number] Co mmon 00:00:00 00:00:00 [facility] 2021-11-13 2021-11-13 (TEL) [facility] [id number] Co mmon 00:00:00 00:00:00 [facility] 2021-11-09 2021-11-09 OFFICE [facility] ST[facility] [id number] Co mmon 00:00:00 00:00:00 VISIT EST Spir it PT LEVEL 3 [facility] 2021-11-08 2021-11-08 (TEL) [facility] [id number] Co mmon 00:00:00 00:00:00 [facility] 2021-10-17 2021-10-17 Outpatient [facility] [id number] [address] [place] 00:00:00 00:00:00 SVET[address] 2021-10-04 2021-10-04 Telephone Lisa, 1.2.840.1 [id number] Methodi 00:00:00 00:00:[address] 3.430.2.7 Hospit a .3.912518 l .8 2021-10-04 2021-10-04 Telephone Lisa, 1.2.840.1 [id number] Methodi 00:00:00 00:00:[address] 3.430.2.7 Hospit a .3.340159 l .8 2021-10-02 2021-10-[address] [facility], 1.2.840.1 [id number] Methodi 09:46:00 23:59:00 Encounter Svetang 66127.1.[address] Robin 3.430.2.7 Hospit a .3.283974 l .8 2021-10-02 2021-10-02 Anesthesia Giovanna Cano 1.2.840.1 10 [id number] Methodi 11:25:00 11:58:00 Event Kaya Shah 85350.1.[address] 3.430.2.7 Hospit a .3.828077 l .8 2021-10-02 2021-10-02 Surgery [facility], 1.2.840.1 [id number] Methodi 11:05:00 11:35:[address] Robin 3.430.2.7 Hospit a .3.997045 l .8 2021-10-02 2021-10-02 Outpatient [facility] [id number] [address] [place] 00:00:00 00:00:00 SVETANG [address] 2021-09-28 2021-09-28 Pre-Admiss [facility], 1.2.840.1 [id number] Methodi 13:30:00 13:45:00 ion Svetang 05398.1.[address] Testing Robin 3.430.2.7 Hospit a .3.353475 l .8 2021-09-28 2021-09-28 Outpatient MAI, [facility] [id number] [address] [place] 00:00:00 00:00:00 SVETANG [address] 2021-09-28 2021-09-28 Travel 1.2.840.1 1.2.546.175 [id number] Methodi 00:00:00 00:00:[address] 3.430.2.7 0.2.7.3.698 Ho spita .3.629248 084.8 l .8 2021-09-27 2021-09-27 Prep for Chaaideewala, 1.2.840.1 [id number] Methodi 00:00:00 00:00:00 Surgery Farhin 95727.1.[address] 3.430.2.7 Hospit a .3.774518 l .8 2021-09-27 2021-09-27 Orders Chaviwala, 1.2.840.1 [id number] Methodi 00:00:00 00:00:00 Only Farhin 63079.1.[address] 3.430.2.7 Hospit a .3.526815 l .8 2021-09-26 2021-09-26 Office Mia, 1.2.840.1 [id number] Methodi 15:00:00 16:13:56 Visit Svetang 67562.1.[address] Robin 3.430.2.7 Hospit a .3.394278 l .8 2021-09-26 2021-09-26 Outpatient MAI, [facility] [id number] [place] 00:00:00 00:00:[address] 2021-09-26 2021-09-26 Travel 1.2.840.1 [id number] [id number] Methodi 00:00:00 00:00:[address] 3.430.2.7 0.2.7.3.698 Ho spita .3.897205 084.8 l .8 2021-08-09 2021-08-09 Office [facility] 1.2.840.114 [id number] [facility] 08:08:30 09:35:11 Visit ELLIE AMBULATOR 350.1.13.21 College Y 0.2.7.2.686 of [id number] Medi pushpa 800 e 2021-05-09 2021-05-09 Office [facility] 1.2.840.114 [id number] [facility] 10:53:00 12:14:51 Visit ELLIE AMBULATOR 350.1.13.21 College Y 0.2.7.2.686 of [id number] Medi pushpa 800 e 2021-05-09 2021-05-09 Outpatient [facility] [id number] [facility] 09:57:58 12:14:41 IVONE Huerta e of Medicin e 2021-05-09 2021-05-09 Outpatient [facility] [id number] [facility] 07:57:08 10:17:52 ELLIE patrick of Medicin e 2021-04-19 2021-04-19 Office Isis [facility] 1.2.840.114 [id number] [facility] 08:50:28 09:05:28 Visit Ellie D AMBULATOR 350.1.13.21 College Y 0.2.7.2.686 of [id number] Medi pushpa 800 e 2020-09-11 2020-09-11 Outpatient [facility] [id number] Common 00:00:00 00:00:00 [facility] 2020-08-29 2020-08-29 Outpatient [facility] [id number] Common 00:00:00 00:00:00 [facility] Results Test Description Test Time Test Comments Results Result Comments Source Surgical pathology request 2021-10-04 00:41:18 Test Item Value Reference Range Interpretation Comme nts Case number (test code = 3022418) [id number] Surgical pathology report (test code = See link below for PDF Lab R eport 7019) Result status (test code = 4178724) This is Final Report for [id number] [facility]-CoV-2 (COVID-19) RNA [Presence] in Respiratory specimen by GALLO with probe [id number] 20:22:52 Test Item Value Reference Range Interpretation Comments SARS-CoV-2 (COVID-19) RNA Not detected [Presence] in Respiratory specimen by GALLO with probe detection (test code = 53868-8) Whether patient is employed in a Unknown healthcare setting (test code = 26149-3) Whether the patient has symptoms Unknown related to condition of interest (test code = 82898-4) Whether the patient was Unknown hospitalized for condition of interest (test code = 92755-7) Whether the patient was admitted Unknown to intensive care unit (ICU) for condition of interest (test code = 65272-8) Whether patient resides in a Unknown congregate care setting (test code = 27853-5) status (test code = Unknown 95869-4) Date and time of symptom onset Unknown (test code = 51928-2) [facility]-CoV-2 (COVID-19) RNA [Presence] in Respiratory specimen by GALLO with probe [id number] 20:22:52 Test Item Value Reference Range Interpretation Comments SARS coronavirus RNA [Presence] Not detected in Isolate by GALLO with probe detection (test code = 64445-8) Whether patient is employed in a Unknown healthcare setting (test code = 07957-8) Whether the patient has symptoms Unknown related to condition of interest (test code = 53404-7) Whether the patient was Unknown hospitalized for condition of interest (test code = 54954-2) Whether the patient was admitted Unknown to intensive care unit (ICU) for condition of interest (test code = 58039-5) Whether patient resides in a Unknown congregate care setting (test code = 56766-3) status (test code = Unknown 12287-7) Date and time of symptom onset Unknown (test code = 21055-9) [facility]
--- NOTE | 2022-08-05 21:50 | RAD REPORT ---
EXAM DESCRIPTION: CT - Head C Spine Mpr Wo Con - 08/05/2022 9:26 pm CLINICAL HISTORY: Head and neck injury status post fall. Head and neck pain COMPARISON: October 2021 and 2018 TECHNIQUE: Computed axial tomography of the head and cervical spine was obtained. Sagittal and coronal reconstruction was performed. All CT scans are performed using dose optimization technique as appropriate and may include automated exposure control or mA/KV adjustment according to patient size. FINDINGS: An intracranial bleed is not seen. The ventricles are normal in caliber. An extra-axial fl uid collection is not noted.Fluid within the visualized sinuses and mastoids is not seen A cervical fracture is not visualized. No dislocation is noted. Fusion posterior elements C2 and C3 IMPRESSION: No acute intracranial abnormality is seen. A cervical fracture is not visualized. If the patient continues to have symptoms to suggest intracra nial /spinal cord pathology then MRI would be recommended
--- NOTE | 2022-08-05 21:59 | RAD REPORT ---
EXAM DESCRIPTION: CT - Facial Bones W/ Mpr - 08/05/2022 9:26 pm CLINICAL HISTORY: Facial injury status post fall COMPARISON: None TECHNIQUE: Computed axial tomography of the face was obtained. Coronal and sagittal reconstruction w as performed. All CT scans are performed using dose optimization technique as appropriate and may include automated exposure control or mA/KV adjustment according to patient size. FINDINGS: A mildly displaced nasal bone fracture A TMJ dislocation is not noted. The globes are intact. Fluid within the sinuses is not seen. IMPRESSION: Mildly displaced nasal bone fracture
--- NOTE | 2022-08-05 22:11 | EDPHYS ---
Physician Documentation [facility] Name: Jonathon Soliz Age: 52 yrs Sex: Male : 1970 Arrival Date: 08/05/2022 Time: 20:54 Bed DIS3 Private MD: ED Physician Germán Andrews HPI: 08/05 22:05 This 52 yrs old Male presents to ER via Ambulatory with complaints of Fall dana Injury, Facial Injury, Head Injury-Adult. 22:05 Details of fall: The patient fell from an upright position, while walking. Onset: The dana symptoms/episode began/occurred just prior to arrival. Associated injuries: The patient sustained injury to the head, hematoma, pain, bridge of nose. Severity of symptoms: At their worst the symptoms were mild, in the emergency department the symptoms are unchanged. The patient has not experienced similar symptoms in the past. Historical: - Allergies: 21:16 No Known Allergies; vc1 - Home Meds: 21:16 triamterene-hydrochlorothiazide Oral [Active]; vc1 - PMHx: 21:16 Hearing Loss; Vertigo; Meniere's; vc1 - PSHx: 21:16 Lasik eye sx; Right wrist sx; Vasectomy; vc1 - Immunization history:: Client reports having NOT received the Covid vaccine. - Social history:: Smoking status: Patient denies any tobacco usage or history of. ROS: 22:06 Constitutional: Negative for fever, chills, and weight loss, Eyes: Negative for injury, dana pain, redness, and discharge, Neck: Negative for injury, pain, and swelling, Cardiovascular: Negative for chest pain, palpitations, and edema, Respiratory: Negative for shortness of breath, cough, wheezing, and pleuritic chest pain, Abdomen/GI: Negative for abdominal pain, nausea, vomiting, diarrhea, and constipation, Back: Negative for injury and pain, : Negative for injury, bleeding, discharge, and swelling, MS/Extremity: Negative for injury and deformity, Skin: Negative for injury, rash, and discoloration, Neuro: Negative for headache, weakness, numbness, tingling, and seizure, Psych: Negative for depression, anxiety, suicide ideation, homicidal ideation, and hallucinations, Allergy/Immunology: Negative for hives, rash, and allergies, Endocrine: Negative for neck swelling, polydipsia, polyuria, polyphagia, and marked weight changes, Hematologic/Lymphatic: Negative for swollen nodes, abnormal bleeding, and unusual bruising. 22:06 ENT: Positive for injury or acute deformity, abrasion, contusion. Exam: 22:06 Constitutional: This is a well developed, well nourished patient who is awake, alert, dana and in no acute distress. Eyes: Pupils equal round and reactive to light, extra-ocular motions intact. Lids and lashes normal. Conjunctiva and sclera are non-icteric and not injected. Cornea within normal limits. Periorbital areas with no swelling, redness, or edema. ENT: Nares patent. No nasal discharge, no septal abnormalities noted. Tympanic membranes are normal and external auditory canals are clear. Oropharynx with no redness, swelling, or masses, exudates, or evidence of obstruction, uvula midline. Mucous membranes moist. Neck: Trachea midline, no thyromegaly or masses palpated, and no cervical lymphadenopathy. Supple, full range of motion without nuchal rigidity, or vertebral point tenderness. No Meningismus. Chest/axilla: Normal chest wall appearance and motion. Nontender with no deformity. No lesions are appreciated. Cardiovascular: Regular rate and rhythm with a normal S1 and S2. No gallops, murmurs, or rubs. Normal PMI, no JVD. No pulse deficits. Respiratory: Lungs have equal breath sounds bilaterally, clear to auscultation and percussion. No rales, rhonchi or wheezes noted. No increased work of breathing, no retractions or nasal flaring. Abdomen/GI: Soft, non-tender, with normal bowel sounds. No distension or tympany. No guarding or rebound. No evidence of tenderness throughout. Back: No spinal tenderness. No costovertebral tenderness. Full range of motion. Male : Normal genitalia with no discharge or lesions. Skin: Warm, dry with normal turgor. Normal color with no rashes, no lesions, and no evidence of cellulitis. MS/ Extremity: Pulses equal, no cyanosis. Neurovascular intact. Full, normal range of motion. Neuro: Awake and alert, GCS 15, oriented to person, place, time, and situation. Cranial nerves II-XII grossly intact. Motor strength 5/5 in all extremities. Sensory grossly intact. Cerebellar exam normal. Normal gait. Psych: Awake, alert, with orientation to person, place and time. Behavior, mood, and affect are within normal limits. 22:06 Head/face: Noted is abrasion(s), hematoma. Vital Signs: 21:06 Weight 104.33 kg; Height 5 ft. 10 in. (177.80 cm); Pain 6/10; vc1 21:06 BP 115 / 75; Pulse 65; Resp 20; Temp 98.8; Pulse Ox 98% ; vc1 21:06 Body Mass Index 33.00 (104.33 kg, 177.80 cm) vc1 MDM: 21:32 Patient medically screened. [facility] 08/05 21:16 Order name: Facial Bones W/O Con CT vc1 08/05 21:16 Order name: Head C Spine MPR Wo Con CT; Complete Time: 22:00 vc1 08/05 21:33 Order name: EKG; Complete Time: 21:33 dana Administered Medications: 22:15 CANCELLED (Physician Discretion): NS 0.9% 1000 ml IV at 1 bolus Per protocol; 1000 mL bb bolus 22:26 Drug: KeFLEX (cephalexin) 500 mg Route: PO; vc1 22:27 Follow up: Response: No adverse reaction; Medication administered at discharge. vc1 22:26 Drug: Neosporin (wihpyofc-aeouuoisto-amkjzgxjv) Ointment 1 application Route: Topical; vc1 Site: affected area; Disposition Summary: 08/05/22 22:10 Discharge Ordered Location: Home dana Problem: new dana Symptoms: have improved dana Condition: Stable dana Diagnosis - Syncope Near dana - Fall on same level, unspecified dana - Fracture of nasal bones dana - Mnire's disease, unspecified ear dana - Abrasion of nose dana Followup: dana - With: Private Physician - When: 2 - 3 days - Reason: Recheck today's complaints, Continuance of care, Re-evaluation by your physician Discharge Instructions: - Discharge Summary Sheet dana - Nasal Fracture dana - Near-Syncope dana - Syncope dana - Weakness dana - Nasal Fracture, [id number] dana - Weakness, [id number] dana Forms: - Medication Reconciliation Form dana - Thank You Letter dana - Antibiotic Education dana - Prescription Opioid Use dana Prescriptions: - Cephalexin 500 mg Oral Capsule - take 1 capsule by ORAL route every 6 hours for 7 days; 28 capsule; Refills: 0, dana Product Selection Permitted Signatures: Dispatcher [employer] EDGermán Gant MD MD cha Calcote, Vanessa RN RN vc1 Kaya Pierson RN bb Corrections: (The following items were deleted from the chart) 22:15 21:33 EKG - Nurse/Tech ordered. dana bb 22:15 21:33 NS 0.9% 1000 ml IV at 1 bolus Per protocol; 1000 mL bolus ordered. dana bb 22:20 21:21 TYPE AND SCREEN+BB.LAB.BRZ ordered. EDMS EDMS 22:20 21:33 Troponin High Sensitivity+C.LAB.BRZ ordered. EDMS EDMS 22:22 21:21 BASIC METABOLIC PANEL+C.LAB.BRZ ordered. EDMS EDMS 22: 21:21 CBC+H.LAB.BRZ ordered. EDMS EDMS 22:27 21:20 Labs collected and sent ordered. vc1 vc1
--- NOTE | 2022-08-05 22:11 | ER ---
Nurse's Notes [facility] Name: Jonathon Soliz Age: 52 yrs Sex: Male : 1970 Arrival Date: 08/05/2022 Time: 20:54 Bed DIS3 Private MD: Diagnosis: Syncope Near;Fall on same level, unspecified;Fracture of nasal bones;Mnire's disease, unspecified ear;Abrasion of nose Presentation: 08/05 21:06 Chief complaint: Patient states: "I was sitting on the side of the tub because I was vc1 dizzy, I got up to start walking and I think I tripped on something and fell face first.". Coronavirus screen: Vaccine status: Patient reports being unvaccinated. Ebola Screen: No symptoms or risks identified at this time. Initial Sepsis Screen: Does the patient meet any 2 criteria? No. Patient's initial sepsis screen is negative. Does the patient have a suspected source of infection? No. Patient's initial sepsis screen is negative. Risk Assessment: Do you want to hurt yourself or someone else? Patient reports no desire to harm self or others. Note Positive LOC. Onset of symptoms was August 05, 2022 at 19:30. 21:06 Method Of Arrival: Ambulatory vc1 21:06 Acuity: JOSE 2 vc1 Triage Assessment: 21:18 General: Appears in no apparent distress. uncomfortable, Behavior is calm, cooperative, vc1 appropriate for age. Pain: Complains of pain in head, and nose Pain does not radiate. EENT: Reports nose bleed. Neuro: Level of Consciousness is states he loss consciousness for approximately 1 minute. Cardiovascular: No deficits noted. Respiratory: Airway is patent Respiratory effort is even, unlabored, Respiratory pattern is regular, symmetrical. GI: No deficits noted. No signs and/or symptoms were reported involving the gastrointestinal system. : No deficits noted. No signs and/or symptoms were reported regarding the genitourinary system. Derm: Wound noted top of head and nose. Musculoskeletal: No deficits noted. Historical: - Allergies: 21:16 No Known Allergies; vc1 - Home Meds: 21:16 triamterene-hydrochlorothiazide Oral [Active]; vc1 - PMHx: 21:16 Hearing Loss; Vertigo; Meniere's; vc1 - PSHx: 21:16 Lasik eye sx; Right wrist sx; Vasectomy; vc1 - Immunization history:: Client reports having NOT received the Covid vaccine. - Social history:: Smoking status: Patient denies any tobacco usage or history of. Screenin:27 [facility] ED Fall Risk Assessment (Adult) History of falling in the last 3 months, vc1 including since admission Yes- physiologic fall (2 pts) Confusion or Disorientation No (0 pts) Intoxicated or Sedated No (0 pts) Impaired Gait No (0 pts) Mobility Assist Device Used No (0 pt) Altered Elimination No (0 pt) Score/Fall Risk Level 0 - 2 = Low Risk Maintained a safe environment, Educated pt \\T\\ family on fall prevention, incl call for assistance when getting out of bed, Assessed \\T\\ reinforced patient's understanding of fall precautions. Abuse screen: Denies threats or abuse. Nutritional screening: No deficits noted. Tuberculosis screening: No symptoms or risk factors identified. Assessment: 22:29 Reassessment: Patient and/or family updated on plan of care and expected duration. Pain vc1 level reassessed. Patient is alert, oriented x 3, equal unlabored respirations, skin warm/dry/pink. Patient states symptoms have improved. Vital Signs: 21:06 Weight 104.33 kg; Height 5 ft. 10 in. (177.80 cm); Pain 6/10; vc1 21:06 BP 115 / 75; Pulse 65; Resp 20; Temp 98.8; Pulse Ox 98% ; vc1 21:06 Body Mass Index 33.00 (104.33 kg, 177.80 cm) vc1 ED Course: 20:54 Patient arrived in ED. mr 21:11 Triage completed. vc1 21:19 Arm band placed on right wrist. vc1 21:28 Facial Bones W/O Con CT In Process Unspecified. EDMS 21:28 Head C Spine MPR Wo Con CT In Process Unspecified. EDMS 21:32 Germán Andrews MD is Attending Physician. dana 22:28 No provider procedures requiring assistance completed. Patient did not have IV access vc1 during this emergency room visit. Administered Medications: 22:15 CANCELLED (Physician Discretion): NS 0.9% 1000 ml IV at 1 bolus Per protocol; 1000 mL bb bolus 22:26 Drug: KeFLEX (cephalexin) 500 mg Route: PO; vc1 22:27 Follow up: Response: No adverse reaction; Medication administered at discharge. vc1 22:26 Drug: Neosporin (bydgbwsm-rhxgjovelm-kizinvjuv) Ointment 1 application Route: Topical; vc1 Site: affected area; Medication: 22:29 VIS not applicable for this client. vc1 Outcome: 22:10 Discharge ordered by . dana 22:28 Discharged to home ambulatory, with significant other. vc1 22:28 Condition: good 22:28 Discharge instructions given to patient, significant other, Instructed on discharge instructions, follow up and referral plans. medication usage, Demonstrated understanding of instructions, follow-up care, medications, Prescriptions given X 1. 22:29 Patient left the ED. vc1 Signatures: Dispatcher [employer] EDMS Germán Andrews MD MD cha Rivera, Mary mr Calcote, Vanessa, RN RN vc1 Kaya Pierson RN bb
[2022-08-05] MEDS ORDERED: CEPHALEXIN 250 MG CAP ONE (22:20)
[2022-08-05] MEDS ORDERED: NEOMYCIN/BAC/POLY OPTH 3.5GM ONE (22:20)
[2022-08-05] MEDS ORDERED: BACI/NEOMYCIN/POLY OINT 15GM TOP ONE (22:23)
[2022-08-05 22:34] VITALS: BP 115/75; TEMP 98.8; O2SAT 98
== END 2022-08-05 22:29 | disposition home or self-care (01) ==
LOC: ER 20:51
DX: S02.2XXA Fracture of nasal bones, initial encounter for closed fracture (principal); S00.31XA Abrasion of nose, initial encounter; W18.30XA Fall on same level, unspecified, initial encounter; H81.09 Meniere's disease, unspecified ear
CPT/HCPCS: 70450; 70486; 72125; 76377; 99283

== ENCOUNTER 2022-12-17 07:59 | Emergency (ER) | payer OTHER ==
--- OUTSIDE RECORDS SUMMARY | 2022-12-17 08:03 | XMS REPORT | Continuity of Care Document ---
:1970 Author Organization [facility] t Address [address] [facility] [place] [address] Care Team Providers Name Role Phone Asked, No Pcp Primary Care Physician Unavailable Loy Luis Attending Clinician Unavailable MERLYN STEVENS Attending Clinician Unavailable Gela Gonzalez MA Attending Clinician Unavailable Gioavnna Cano MD Attending Clinician Kaya Shah NP Attending Clinician [phone] Charmaine Urbina MA Attending Clinician Unavailable ELLIE MARINELLI Attending Clinician Unavailable IVONE ZAMORA Attending Clinician Unavailable Ellie Marinelli MD Attending Clinician MERLYN STEVENS Admitting Clinician Unavailable JANINE MACE Admitting Clinician Unavailable Payers Payer Name Policy Type Policy Number Effective Date Expiration Date S bang AETNA 53 [id number] 2021 Common 00:00:00 [facility] AETNA 53 [id number] 2020 Common 00:00:00 [facility] [id number] [facility] Problems Condition Condition Condition Status Onset Resolution Last Treating Co mments Source Name Details Category Date Date Treatment Clinician Date Colon Colon Disease Active Overview: Method i cancer cancer 2-[address] screening screening 00:00: g of this H ospita 00 note l might be different from the original. Added automatic ally from request for surgery [id number] Family Family Disease Active Overview: Method i history of history of 2-[address] colonic colonic 00:00: g of this Hospi ta polyps polyps 00 note l might be different from the original. Added automatic ally from request for surgery [id number] PTSD Problem Active Common (post-trau Spirit matic - [facility] stress [facility] disorder) [facility] [id number] Obstructiv Problem Active Com mon e sleep Spirit apnea - [facility] (adult) (pediatric [facility] ) [facility] [id number] Body mass Problem Active Com mon index Spirit [BMI] - [facility]I 35.0-35.9, adult [facility] [id number] Current Problem Active Common moderate Spirit episode of - [facility] major depressive [facility] disorder [facility] prior episode [id number] Dependence Problem Active Co mmon on other Spirit enabling - [facility] machines and [facility] devices [facility] [id number] Morbid Problem Active Common (severe) Spirit obesity - [facility] due to excess [facility] calories [facility] Allergies, Adverse Reactions, Alerts This patient has no known allergies or adverse reactions. Family History Family Member Diagnosis Comments Start Date Stop Date Source Natural father [facility] Natural mother Thyroid disease [facility] Social History Social Habit Start Date Stop Date Quantity Comments Source Sexual orientation 2021-09-26 Heterosexual Meth odist 14:03:31 (finding) Hospital History of Tobacco Common Spirit - Use [facility] Exposure to Not sure [facility] Colle e SARS-CoV-2 (event) of Med icine History [facility] St[facility] Dr[facility] Hospit al History [facility] Alcohol intake 2021-10-05 2021-10-05 Current drinker of [facility] 00:00:00 00:00:00 alcohol (finding) Hospita l History of Social 2021-10-05 2021-10-[address] function 00:00:00 00:00:00 Hospital History SDOH 2021-10-01 2021-10-01 1 [facility] Alcohol Frequency 00:00:00 00:00:00 Hospita l Alcohol Comment 2021-10-01 2021-10-01 1 every 3 months [facility] 00:00:00 00:00:00 Hospital Tobacco use and 2021-09-26 2021-09-26 Smokeless tobacco [facility] exposure 00:00:00 00:00:00 non-user Hospital Tobacco Comment 2021-04-19 2021-04-19 quit in the [facility] C ollege 00:00:00 00:00:00 of [facility] Cigarettes smoked 2021-04-19 2021-04-19 [facility] current (pack per 00:00:00 00:00:00 of [facility] [employer] day) - Reported Cigarette 2021-04-19 2021-04-19 [facility] pack-years 00:00:00 00:00:00 of Medicine History SDOH 2021-04-18 2021-04-[address] [facility] Physical Activity 00:00:00 00:00:00 of [facility] [employer] DPW History SDOH 2021-04-18 2021-04-18 4 [facility] ge Physical Activity 00:00:00 00:00:00 of [facility] [employer] MPS Sex Assigned At [birth year] [facility] 00:00:[facility]:00 Hospital Smoking Status Start Date Stop Date Source Former Smoker 2021-11-09 00:00:00 2021-11-09 00:00:00 Common S pirit - [facility] Ce [facility]ter Never smoked tobacco [facility] Medications Ordered Filled Start Stop Current Ordering Indication Dosage Frequency Signature Comments Components Source Medication Medication Date Date Medication? Clinician (SIG) Name Name CHOLECALCIF Yes QD Take by Met hodi MARIELENA, 3-[address] VITAMIN D3, 03:05: daily. Hosp rain ORAL 25 l Lactobacill 0 Yes Take by Met hodi us 3-[address] acidophilus 03:05: Hospit a (PROBIOTIC 25 l ORAL) ASHWAGANDHA 0 Yes Take by Met hodi ROOT 3-[address] EXTRACT 03:05: Hospita ORAL 25 l CHOLECALCIF 2021-0 Yes QD Take by Met hodi MARIELENA, 3-[address] VITAMIN D3, 03:05: daily. Hosp rain ORAL 25 l Lactobacill 2021-0 Yes Take by Met hodi us 3-[address] acidophilus 03:05: Hospit a (PROBIOTIC 25 l ORAL) ASHWAGANDHA Yes Take by Met hodi ROOT 3-[address] EXTRACT 03:05: Hospita ORAL 25 l hydrocortis 2021- No [id number] 25mg QD Insert 1 Methodi one 10-04 [...] a gram/160 mL day as solution directed sod Yes 1{kit} Q.5D Take 1 kit Metho di picosulf-ma 2-[address] g ox-citric 00:00: (two) Hospi ta ac 00 times a l (Clenpiq) day. Take 10 mg-3.5 one bottle gram -12 twice a gram/160 mL day as solution directed testosteron 0 Yes Q7D once a Meth irena e cypionate 2-[address] (DEPOTESTOT 00:00: Hospit a ERONE 00 l CYPIONATE) 200 mg/mL injection testosteron 0 Yes Q7D once a Meth irena e [...] betahistine 2020-08- No 1{capsu Take 1 [facility] 8 MG 0-06 01-06 le} capsule by College capsule 00:00: 00:00 mouth of 00 :00 daily. Medicin e zinc Yes DAILY Carlos sulfate 8-21 College (ZINCATE) 00:00: of 220 (50 Zn) 00 Medicin MG capsule e Aspirin 81 Yes 2{tbl} 2 Tablets. Carlos MG tablet 03-24 College 00:00: of 00 Medicin e ascorbic 0 Yes TWICE [facility] acid 500 MG 03-24 DAILY College tablet 00:00: of 00 Medicin e montelukast 0 Yes DAILY [facility] (SINGULAIR) 03-24 College 10 MG 00:00: of tablet 00 Medicin e zinc 0 Yes DAILY [facility] sulfate 03-24 College (ZINCATE) 00:00: of 220 (50 Zn) 00 Medicin MG capsule e Aspirin 81 Yes 2{tbl} 2 Tablets. [facility] MG tablet 03-24 College 00:00: of 00 Medicin e ascorbic 0 Yes TWICE [facility] acid 500 MG 03-24 DAILY College tablet 00:00: of 00 Medicin e zinc 0 Yes DAILY [facility] sulfate 03-24 College (ZINCATE) 00:00: of 220 (50 Zn) 00 Medicin MG capsule e Aspirin 81 Yes 2{tbl} 2 Tablets. [facility] MG tablet 03-24 College 00:00: of 00 Medicin e ascorbic 0 Yes TWICE [facility] acid 500 MG 03-24 DAILY College tablet 00:00: of 00 Medicin e zinc 0 Yes DAILY [facility] sulfate 03-24 College (ZINCATE) 00:00: of 220 (50 Zn) 00 Medicin MG capsule e Aspirin 81 Yes 2{tbl} 2 Tablets. [facility] MG tablet 03-24 College 00:00: of 00 Medicin e ascorbic 0 Yes TWICE [facility] acid 500 MG 03-24 DAILY College tablet 00:00: of 00 Medicin e montelukast 0 Yes DAILY [facility] (SINGULAIR) 03-24 College 10 MG 00:00: of tablet 00 Medicin e montelukast 0 2020- No DAILY [facility] (SINGULAIR) 03-24 10-06 College 10 MG 00:00: 00:00 of tablet 00 :00 Medicin e triamterene 0 Yes DAILY [facility] -hydrochlor 03-23 College othiazide 00:00: of (DYAZIDE) 00 Medicin 37.5-25 MG e per capsule triamterene 2021-0 Yes DAILY [facility] -hydrochlor 8-20 [place] othiazide 00:00: of (DYAZIDE) 00 Medicin 37.5-25 MG e per capsule triamterene 2021-0 Yes DAILY [facility] -hydrochlor 8-20 [place] othiazide 00:00: of (DYAZIDE) 00 Medicin 37.5-25 MG e per capsule triamterene 2021-0 Yes DAILY [facility] -hydrochlor 8-20 [place] othiazide 00:00: of (DYAZIDE) 00 Medicin 37.5-25 MG e per capsule triamterene 2021-0 Yes QD daily. Meth irena -hydrochlor 8-20 st othiazid 00:00: Hospita (DYAZIDE) 00 l 37.5-25 mg per capsule triamterene 2021-0 Yes QD daily. Meth irena -hydrochlor 8-20 st othiazid 00:00: Hospita (DYAZIDE) 00 l 37.5-25 [...] Name Observation Time Observation Value Comments Source weight 2021-11-09 08:40:00 241.5 [lb_av] [facility] temperature 2021-11-09 08:40:00 97.5 [degF] [facility] bmi 2021-11-09 08:40:00 33.68 kg/m2 [facility] oximetry 2021-11-09 08:40:00 97 % [facility] respiratory rate 2021-11-09 08:40:00 17 /min Comm on [facility] blood pressure 2021-11-09 08:40:00 135 mm[Hg] [facility] - systolic [facility] blood pressure 2021-11-09 08:40:00 87 mm[Hg] [facility] - diastolic [facility] height 2021-11-09 08:40:00 71 [in_i] [facility] Systolic blood 2021-08-09 14:36:00 142 mm[Hg] [facility] pressure Medicine Diastolic blood 2021-08-09 14:36:00 91 mm[Hg] [facility] Medicine Heart rate 2021-08-09 14:36:00 63 /min [facility] Body temperature 2021-08-09 14:36:00 37.06 Shira [facility] Body height 2021-08-09 14:36:00 177.8 cm [facility] C [facility] of Medicine Body weight 2021-08-09 14:36:00 104.327 kg [facility] C [facility] of Medicine BMI 2021-08-09 14:36:00 33.00 kg/m2 [facility] Systolic blood 2021-05-09 16:06:00 117 mm[Hg] [facility] Medicine Diastolic blood 2021-05-09 16:06:00 77 mm[Hg] [facility] Medicine Heart rate 2021-05-09 16:06:00 71 /min [facility] Body height 2021-05-09 16:06:00 177.8 cm [facility] Body weight 2021-05-09 16:06:00 95.255 kg [facility] BMI 2021-05-09 16:06:00 30.13 kg/m2 [facility] Medicine Systolic blood 2021-04-19 14:27:00 122 mm[Hg] [facility] Medicine Diastolic blood 2021-04-19 14:27:00 83 mm[Hg] [facility] Medicine Heart rate 2021-04-19 14:27:00 64 /min [facility] Body height 2021-04-19 14:27:00 177.8 cm [facility] Body weight 2021-04-19 14:27:00 95.255 kg [facility] BMI 2021-04-19 14:27:00 30.13 kg/m2 [facility] Medicine Systolic blood 2021-10-02 18:19:00 109 mm[Hg] [facility] pressure Diastolic blood 2021-10-02 18:19:00 65 mm[Hg] [facility] pressure Heart rate 2021-10-02 18:19:00 70 /min [facility] Respiratory rate 2021-10-02 18:19:00 15 /min [facility] Oxygen saturation in 2021-10-02 18:19:00 95 /min [facility] Arterial blood by Pulse oximetry Body temperature 2021-10-02 17:48:00 36.61 Shira [facility] Body height 2021-10-02 16:57:00 177.8 cm [facility] Body weight 2021-10-02 16:57:00 104.327 kg [facility] BMI 2021-10-02 16:57:00 33.00 kg/m2 [facility] Procedures Procedure Date / Time Performed Performing Clinician [facility] e SURGICAL PATHOLOGY 2021-10-02 21:30:00 [facility] REQUEST COLONOSCOPY 2021-10-02 17:20:00 [facility] COVID-19 QUALITATIVE 2021-09-28 19:13:00 ZainabHaley naqvi [facility] RT-PCR Plan of Care Planned Activity Planned Date Details Comments Source Future Scheduled 2022-12-17 COVID-19 VACCINE (#1) [facility] Test 08:02:12 [code = COVID-19 VACCINE Hos pital (#1)] Future Scheduled 2022-12-17 Hepatitis C screening [facility] Test 08:02:12 (procedure) [code = Hospital [id number]] Future Scheduled 2022-12-17 SHINGLES VACCINES (1 of [facility] Test 08:02:12 2) [code = SHINGLES Hospital VACCINES (1 of 2)] Future Scheduled 2022-12-17 INFLUENZA VACCINE [code = [facility] Test 08:02:12 INFLUENZA VACCINE] Hospital Future Scheduled 2022-12-17 COLONOSCOPY SCREENING [facility] Test 08:02:12 [code = COLONOSCOPY Hospital SCREENING] Future Scheduled 2022-07-23 COVID-19 VACCINE (#1) [facility] Test 13:28:08 [code = COVID-19 VACCINE Hos pital (#1)] Future Scheduled 2022-07-23 Hepatitis C screening [facility] Test 13:28:08 (procedure) [code = Hospital [id number]] Future Scheduled 2022-07-23 SHINGLES VACCINES (1 of [facility] Test 13:28:08 2) [code = SHINGLES Hospital VACCINES (1 of 2)] Future Scheduled 2022-07-23 INFLUENZA VACCINE [code = [facility] Test 13:28:08 INFLUENZA VACCINE] Hospital Future Scheduled 2022-07-23 COLONOSCOPY SCREENING [facility] Test 13:28:08 [code = COLONOSCOPY Hospital SCREENING] Future Scheduled 2021-08-09 Hepatitis C screening Ba [facility] Test 08:35:38 (procedure) [code = Medicine [id number]] Future Scheduled 2021-08-09 Human immunodeficiency B [facility] of Test 08:35:38 virus screening Medicine (procedure) [code = 228299161] Future Scheduled 2021-08-09 ZOSTER VACCINE (1 of 2) [facility] Test 08:35:38 [code = ZOSTER VACCINE (1 Me dicine of 2)] Future Scheduled 2021-08-09 FLU VACCINE > 6 MONTHS B [facility] Test 08:35:38 [code = FLU VACCINE > 6 Medi cine MONTHS] Future Scheduled 2021-08-09 Screening for malignant [facility] of Test 08:35:38 neoplasm of colon Medicine (procedure) [code = 107008195] Future Scheduled 2021-08-09 COVID-19 Vaccine (1) [facility] of Test 08:35:38 [code = COVID-19 Vaccine Med icine (1)] Future Scheduled 2021-08-09 TETANUS SHOT (ADULT) [facility] of Test 08:35:38 [code = TETANUS SHOT Medicin e (ADULT)] Future Scheduled 2021-08-09 BMI FOLLOW UP PLAN [code [facility] of Test 08:35:38 = BMI FOLLOW UP PLAN] Medici ne Future Scheduled 2021-05-09 Screening for malignant [facility] of Test 11:45:04 neoplasm of colon Medicine (procedure) [code = 393843587] Future Scheduled 2021-05-09 COVID-19 Vaccine (1) [facility] of Test 11:45:04 [code = COVID-19 Vaccine Med icine (1)] Future Scheduled 2021-05-09 TETANUS SHOT (ADULT) [facility] of Test 11:45:04 [code = TETANUS SHOT Medicin e (ADULT)] Future Scheduled 2021-05-09 BMI FOLLOW UP PLAN [code [facility] of Test 11:45:04 = BMI FOLLOW UP PLAN] Medici ne Future Scheduled 2021-05-09 Hepatitis C screening Ba [facility] of Test 11:45:04 (procedure) [code = Medicine [id number]] Future Scheduled 2021-05-09 Human immunodeficiency B [facility] of Test 11:45:04 virus screening Medicine (procedure) [code = 801730397] Future Scheduled 2021-05-09 ZOSTER VACCINE (1 of 2) [facility] of Test 11:45:04 [code = ZOSTER VACCINE (1 Me dicine of 2)] Future Scheduled 2021-05-09 FLU VACCINE > 6 MONTHS B [facility] of Test 11:45:04 [code = FLU VACCINE > 6 Medi cine MONTHS] Future Scheduled 2021-04-19 Screening for malignant [facility] Test 08:00:46 neoplasm of colon Medicine (procedure) [code = 416926000] Future Scheduled 2021-04-19 COVID-19 Vaccine (1) [facility] of Test 08:00:46 [code = COVID-19 Vaccine Med icine (1)] Future Scheduled 2021-04-19 TETANUS SHOT (ADULT) [facility] of Test 08:00:46 [code = TETANUS SHOT Medicin e (ADULT)] Future Scheduled 2021-04-19 Hepatitis C screening [facility] Test 08:00:46 (procedure) [code = Medicine 855567897] Future Scheduled 2021-04-19 Human immunodeficiency B [facility] of Test 08:00:46 virus screening Medicine (procedure) [code = 719700098] Future Scheduled 2021-04-19 ZOSTER VACCINE (1 of 2) [facility] of Test 08:00:46 [code = ZOSTER VACCINE (1 Me dicine of 2)] Future Scheduled 2021-04-19 FLU VACCINE > 6 MONTHS B [facility] of Test 08:00:46 [code = FLU VACCINE > 6 Medi cine MONTHS] Future Scheduled 2021-04-19 Screening for malignant [facility] of Test 08:00:46 neoplasm of colon Medicine (procedure) [code = 972206786] Future Scheduled 2021-04-19 COVID-19 Vaccine (1) [facility] of Test 08:00:46 [code = COVID-19 Vaccine Med icine (1)] Future Scheduled 2021-04-19 TETANUS SHOT (ADULT) [facility] Test 08:00:46 [code = TETANUS SHOT Medicin e (ADULT)] Future Scheduled 2021-04-19 Hepatitis C screening Ba [facility] 08:00:46 (procedure) [code = Medicine 324213708] Future Scheduled 2021-04-19 Human immunodeficiency B [facility] Hospital 08:00:46 virus screening Medicine (procedure) [code = 225157581] Future Scheduled 2021-04-19 ZOSTER VACCINE (1 of 2) [facility] 08:00:46 [code = ZOSTER VACCINE (1 Me dicine of 2)] Future Scheduled 2021-04-19 FLU VACCINE > 6 MONTHS B [facility] Hospital 08:00:46 [code = FLU VACCINE > 6 Medi cine MONTHS] Encounters Start End Encounter Admission Attending Care Care Encounter Source Date/Time Date/Time Type Type Clinicians Facility Department ID 2022-02-27 Outpatient Luis, STLMLC [facility] [id number] Common 14:25:02 Loy [id number] [facility] 2021-11-09 Outpatient Luis, STLC [facility] [id number] Common 08:27:02 Loy [id number] [facility] 2021-08-29 Outpatient Luis, STLC [facility] [id number] Common 12:25:36 Loy [id number] [facility] 2021-11-23 2021-11-23 (TEL) [facility] STLC [id number] Co mmon 00:00:00 00:00:00 [facility] 2021-11-13 2021-11-13 (TEL) [facility] STLC [id number] Co mmon 00:00:00 00:00:00 [facility] 2021-11-09 2021-11-09 OFFICE [facility] STLC [id number] Co mmon 00:00:00 00:00:00 VISIT EST Spir it PT LEVEL 3 [facility] 2021-11-08 2021-11-08 (TEL) [facility] STLC [id number] Co mmon 00:00:00 00:00:00 [facility] 2021-10-17 2021-10-17 [facility] [id number] [place] 00:00:00 00:00:[address] 2021-10-04 2021-10-04 Telephone Lisa, 1.2.840.1 [id number] Methodi 00:00:00 00:00:[address] 3.430.2.7 Hospit a .3.284636 l .8 2021-10-04 2021-10-04 Telephone Lisa, 1.2.840.1 [id number] Methodi 00:00:00 00:00:[address] 3.430.2.7 Hospit a .3.269517 l .8 2021-10-02 2021-10-02 [facility], 1.2.840.1 [id number] Methodi 09:46:00 23:59:00 Encounter Svetang 37897.1.[address] Robin 3.430.2.7 Hospit a .3.105181 l .8 2021-10-02 2021-10-02 Anesthesia Giovanna Cano 1.2.840.1 10 [id number] Methodi 11:25:00 11:58:00 Event Kaya Shah 48555.1.[address] 3.430.2.7 Hospit a .3.708937 l .8 2021-10-02 2021-10-02 Surgery [facility], 1.2.840.1 [id number] Methodi 11:05:00 11:35:[address] Robin 3.430.2.7 Hospit a .3.661205 l .8 2021-09-28 2021-09-28 Pre-Admiss [facility], 1.2.840.1 [id number] Methodi 13:30:00 13:45:00 ion Svetang 42400.1.[address] Testing Robin 3.430.2.7 Hospit a .3.724000 l .8 2021-09-28 2021-09-28 Travel 1.2.840.1 1.2.272.055 [id number] Methodi 00:00:00 00:00:[address] 3.430.2.7 0.2.7.3.698 Ho spita .3.228261 084.8 l .8 2021-09-27 2021-09-27 Orders Carlitos, 1.2.840.1 [id number] Methodi 00:00:00 00:00:00 Only Jose Eduardohin 56078.1.[address] 3.430.2.7 Hospit a .3.427833 l .8 2021-09-27 2021-09-27 Prep for Carlitos, 1.2.840.1 [id number] Methodi 00:00:00 00:00:00 Surgery [place] 99202.1.[address] 3.430.2.7 Hospit a .3.080324 l .8 2021-09-26 2021-09-26 Office Stevens, 1.2.840.1 [id number] Methodi 15:00:00 16:13:56 Visit Merlyn 77544.1.[address] Robin 3.430.2.7 Hospit a .3.357257 l .8 2021-09-26 2021-09-26 Travel 1.2.840.1 1.2.682.754 [id number] Methodi 00:00:00 00:00:[address] 3.430.2.7 0.2.7.3.698 Ho spita .3.372410 084.8 l .8 2021-08-09 2021-08-09 Office DIANNE MARINELLI 1.2.840.114 [id number] [facility] 08:08:30 09:35:11 Visit ELLIE AMBULATOR 350.1.13.21 College Y 0.2.7.2.686 of [id number] Medi pushpa 800 e 2021-05-09 2021-05-09 Office ISIS [facility] 1.2.840.114 [id number] [facility] 10:53:00 12:14:51 Visit ELLIE AMBULATOR 350.1.13.21 College Y 0.2.7.2.686 of [id number] [facility] pushpa 800 e 2021-05-09 2021-05-09 Outpatient [facility] [id number] [facility] 09:57:58 12:14:41 IVONE Huerta e of Medicin e 2021-05-09 2021-05-09 Outpatient ISIS [facility] [id number] [facility] 07:57:08 10:17:52 ELLIE Govito e of Medicin e 2021-04-19 2021-04-19 Office Isis [facility] 1.2.840.114 [id number] [facility] 08:50:28 09:05:28 Visit Ellie D AMBULATOR 350.1.13.21 College Y 0.2.7.2.686 of [id number] [facility] pushpa 800 e 2020-09-11 2020-09-11 Outpatient STLC STLC [id number] Common 00:00:00 00:00:00 [facility] 2020-08-29 2020-08-29 Outpatient STLC STLC [id number] Common 00:00:00 00:00:00 [facility] Results Test Description Test Time Test Comments Results Result Comments Source Surgical pathology request 2021-10-04 00:41:18 Test Item Value Reference Range Interpretation Comme nts Case number (test code = 1105588) [id number] Surgical pathology report (test code = See link below for PDF Lab R eport 6055) Result status (test code = 7686707) This is Final Report for [id number] [facility] [Presence] in Respiratory specimen by GALLO with probe [id number] 20:22:52 Test Item Value Reference Range Interpretation Comments SARS-CoV-2 (COVID-19) RNA Not detected [Presence] in Respiratory specimen by GALLO with probe detection (test code = 78296-4) Whether patient is employed in a Unknown healthcare setting (test code = 11197-4) Whether the patient has symptoms Unknown related to condition of interest (test code = 14523-0) Whether the patient was Unknown hospitalized for condition of interest (test code = 73878-6) Whether the patient was admitted Unknown to intensive care unit (ICU) for condition of interest (test code = 22122-1) Whether patient resides in a Unknown congregate care setting (test code = 87729-0) status (test code = Unknown 10833-8) Date and time of symptom onset Unknown (test code = 67038-1) [facility] RNA [Presence] in Respiratory specimen by GALLO with probe [id number] 20:22:52 Test Item Value Reference Range Interpretation Comments SARS coronavirus RNA [Presence] Not detected in Isolate by GALLO with probe detection (test code = 00181-3) Whether patient is employed in a Unknown healthcare setting (test code = 04139-5) Whether the patient has symptoms Unknown related to condition of interest (test code = 90043-8) Whether the patient was Unknown hospitalized for condition of interest (test code = 71050-0) Whether the patient was admitted Unknown to intensive care unit (ICU) for condition of interest (test code = 55239-4) Whether patient resides in a Unknown congregate care setting (test code = 43581-4) status (test code = Unknown 83878-7) Date and time of symptom onset Unknown (test code = 17463-5) [facility]
[2022-12-17] MEDS ORDERED: MORPHINE 4 MG/ML SYR ONE (08:18)
[2022-12-17] MEDS ORDERED: ONDANSETRON 4 MG/2 ML VIAL ONE (08:18)
[2022-12-17] MEDS ORDERED: NA CHLORIDE 0.9% 1,000 ML ONE (08:18)
[2022-12-17 08:31] LABS: Absolute Lymphocytes (CBC) 1.8 K/uL (0.7-4.9); Hematocrit 51.8 % (39.6-49.0); Lymphocytes % 13.9 % (15.3-44.8); MCV 85.9 fL (80-100); MPV 7.4 fL (7.6-11.3); RBC Red Blood Cell Count 6.03 M/uL (4.33-5.43)
[2022-12-17 08:38] LABS: Specific Gravity 1.016 (1.005-1.030); Urine Bacteria <20 /HPF (<20); Urine Bilirubin NEGATIVE (Negative); Urine Blood 3+ (OVER) (Negative); Urine Clarity Clear (Clear); Urine Color Light-Yellow (Yellow); Urine Glucose NEGATIVE (Negative); Urine Mucus Slight /HPF (None Seen); Urine Protein NEGATIVE (Negative); Urine RBC >50 /HPF (None Seen); Urine Urobilinogen Normal (Normal)
[2022-12-17 08:53] LABS: Albumin 4.1 g/dL (3.4-5.0); Bilirubin Total 0.4 mg/dL (0.2-1.0); Potassium 3.9 mEq/L (3.5-5.1); Protein, Total 7.6 g/dL (6.4-8.2)
[2022-12-17] MEDS ORDERED: PROMETHAZINE INJ 25 MG/ML AMP ONE (09:12)
[2022-12-17] MEDS ORDERED: KETOROLAC 30 MG/ML INJ ONE (09:13)
--- NOTE | 2022-12-17 09:50 | RAD REPORT ---
EXAM DESCRIPTION: CT - Abdomen Pelvis W Contrast - 12/17/2022 9:14 am CLINICAL HISTORY: llq abd pain COMPARISON: Thorax Wo Con dated 10/23/2021; Chest For Pe Angio dated 03/22/2021; LUMBAR SPINE W O CONT RAST dated 06/01/2015 TECHNIQUE: Thin cut axial CT imaging of the abdomen and pelvis was performed following intravenous a dministration of 100 mL Isovue 300. Multiplanar reformats were generated and reviewed. All CT scans are performed using dose optimization technique as appropriate and may include automated exposure control or mA/KV adjustment according to patient size. FINDINGS: No suspicious findings in the lung bases. The liver, spleen, and pancreas show no suspicious findings. Right adrenal 3.6 centimeter rounded hyp oattenuating nodule is grossly stable, not well evaluated on this single-phase exam. Gallbladder and biliary tree are also without suspicious finding. Mild left hydroureteronephrosis. Mild left periureteric fat stranding. 3 millimeter left vesicoureter al junction calculus. No hydronephrosis or radiopaque calculi on the right. No focal suspicious paren chymal abnormality. No dilated bowel loops or bowel wall thickening. Appendix is visualized and is unremarkable. No free air, free fluid or inflammatory stranding. No hernia, mass or bulky lymphadenopathy. The urinary blad marion is suboptimally distended, without significant finding. No suspicious bony findings. IMPRESSION: Mild left hydroureteronephrosis with 3 millimeter left vesicoureteral junction calculus. Stable right adrenal nodule. The findings were communicated to Kenrick Vinson on 12/17/2022 at 09:46 hours.
[2022-12-17] MEDS ORDERED: MAGNESIUM SULFATE 1 gm IVPB 1 GM/100 ML BAG IV ONE (09:54)
[2022-12-17] MEDS ORDERED: TAMSULOSIN 0.4 MG SR CAP ONE (10:18)
--- NOTE | 2022-12-17 10:52 | EDPHYS ---
Physician Documentation [facility] Name: Jonathon Soliz Age: 52 yrs Sex: Male : 1970 Arrival Date: 12/17/2022 Time: 07:59 Bed 20 Private MD: ED Physician Israel Oh HPI: 12/17 09:07 This 52 yrs old Male presents to ER via Ambulatory with complaints of Abdominal Pain. jmm 09:07 The patient presents with abdominal pain in the left lower quadrant. Onset: The jmm symptoms/episode began/occurred gradually, 1 day(s) ago. The symptoms do not radiate. Associated signs and symptoms: Pertinent positives: nausea and vomiting. The symptoms are described as achy. This is a 52 year old male with a history of menieres disease, that presents to the ED with complaints of left lower abdominal pain beginning yesterday along with nausea. . Historical: - Allergies: 08:09 No Known Allergies; bp - Home Meds: 08:09 azelastine 137 mcg (0.1 %) intranasal Aerosol, [place] 2 times per day [Active]; bp betahistine (bulk) 1 cap twice a day [Active]; budesonide 0.5 mg/2 mL inhalation Suspension for Nebulization daily [Active]; bupropion HCl 300 mg Oral Tablet, Extended Release 24 hr every morning [Active]; buspirone 10 mg Oral tablet 2 times per day [Active]; fluticasone propionate 50 mcg/actuation intranasal spray, suspension 2 times per day [Active]; triamterene-hydrochlorothiazid 37.5-25 mg Oral tablet once [Active]; propranolol 60 mg Oral Capsule, ER 24 hr daily [Active]; testosterone cypionate 200 mg/mL intramuscular oil 0.25 mL every week [Active]; - PMHx: 08:09 Hearing Loss; Meniere's; Vertigo; bp - PSHx: 08:09 Lasik eye sx; Right wrist sx; Vasectomy; bp - Immunization history:: Adult Immunizations up to date. - Social history:: Smoking status: Patient denies any tobacco usage or history of. ROS: 09:07 Constitutional: Negative for fever, chills, and weight loss, Cardiovascular: Negative jmm for chest pain, palpitations, and edema, Respiratory: Negative for shortness of breath, cough, wheezing, and pleuritic chest pain. 09:07 Abdomen/GI: Positive for abdominal pain, nausea and vomiting. 09:07 All other systems are negative. Exam: 09:07 Head/Face: atraumatic. Eyes: EOMI, no conjunctival erythema appreciated ENT: Moist [facility] Mucus Membranes Neck: Trachea midline, Supple Chest/axilla: Normal chest wall appearance and motion. Cardiovascular: Regular rate and rhythm. No edema appreciated Respiratory: Normal respirations, no respiratory distress appreciated 09:07 Back: Normal ROM Skin: General appearance color normal MS/ Extremity: Moves all extremities, no obvious deformities appreciated, no edema noted to the lower extremities Neuro: Awake and alert Psych: Behavior is normal, Mood is normal, Patient is cooperative and pleasant 09:07 Constitutional: The patient appears alert, awake, uncomfortable. 09:07 Abdomen/GI: Inspection: abdomen appears normal, Bowel sounds: normal, Palpation: soft, mild abdominal tenderness, in the left lower quadrant. Vital Signs: 08:07 BP 176 / 104; Pulse 53; Resp 16; Temp 98; Pulse Ox 99% ; Weight 102.06 kg; Height 5 ft. bp 11 in. ; 09:13 BP 165 / 104; Pulse 56; Resp 16; Pulse Ox 99% ; bp 11:13 BP 118 / 75; Pulse 56; Resp 16; Pulse Ox 99% ; bp 08:07 Body Mass Index 31.38 (102.06 kg, 180.34 cm) bp MDM: 08:06 Patient medically screened. [facility] 12:53 Data reviewed: vital signs, nurses notes, lab test result(s), radiologic studies, CT [facility] scan. Consideration of Admission/Observation Escalation of care including admission/observation considered. I considered the following discharge prescriptions or medication management in the emergency department Medications were administered in the Emergency Department. See MAR. Counseling: I had a detailed discussion with the patient and/or guardian regarding: the historical points, exam findings, and any diagnostic results supporting the discharge/admit diagnosis, lab results, radiology results, the need for outpatient follow up, to return to the emergency department if symptoms worsen or persist or if there are any questions or concerns that arise at home. 12/17 08:08 Order name: CBC with Diff; Complete Time: 08:34 [facility] 12/17 08:08 Order name: CMP; Complete Time: 08:57 [facility] 12/17 08:08 Order name: Lipase; Complete Time: 08:57 [facility] 12/17 08:08 Order name: Urinalysis w/ reflexes; Complete Time: 08:41 [facility] 12/17 08:08 Order name: CT Abd/Pelvis - IV Contrast Only; Complete Time: 09:55 [facility] 12/17 08:08 Order name: IV Saline Lock; Complete Time: 08:39 [facility] 12/17 08:08 Order name: Labs collected and sent; Complete Time: 08:39 [facility] Administered Medications: 08:15 Drug: NS 0.9% IV 1000 ml Route: IV; Rate: 1 bolus; Site: right antecubital; bp 11:15 Follow up: IV Status: Completed infusion; IV Intake: 1000ml bp 08:15 Drug: Ondansetron IVP 4 mg Route: IVP; Site: right antecubital; bp 09:47 Follow up: Response: No adverse reaction bp 08:15 Drug: morphine IVP or IV 4 mg Route: IVP; Infused Over: 4 mins; Site: right antecubital;bp 09:47 Follow up: Response: No adverse reaction bp 09:12 Drug: Ketorolac IVP 30 mg Route: IVP; Site: right antecubital; bp 09:47 Follow up: Response: No adverse reaction bp 09:12 Drug: Promethazine IVP 12.5 mg Route: IVP; Site: right antecubital; bp 09:47 Follow up: Response: No adverse reaction bp 10:15 Drug: Magnesium Sulfate IVPB 1 grams Route: IVPB; Infused Over: 1 hrs; Site: right bp antecubital; 11:14 Follow up: IV Status: Completed infusion; IV Intake: 100ml bp 10:15 Drug: Flomax PO 0.4 mg Route: PO; bp 11:15 Follow up: Response: No adverse reaction bp Disposition: 13:34 Co-signature as Attending Physician, Israel Oh MD I reviewed the patient's care rn provided by the Advanced Practice Provider and agree with the diagnosis and treatment plan. Disposition Summary: 12/17/22 10:51 Discharge Ordered Location: Home [facility] Condition: Stable [facility] Diagnosis - Calculus of ureter [facility] Followup: [facility] - With: Rupert Iverson MD - When: 2 - 3 days - Reason: Recheck today's complaints, Continuance of care, Re-evaluation by your physician Discharge Instructions: - Discharge Summary Sheet jmm - Kidney Stones jmm - Dietary Guidelines to Help Prevent Kidney Stones [facility] Forms: - Medication Reconciliation Form jmm - Thank You Letter jmm - Antibiotic Education jmm - Prescription Opioid Use jmm - Work release form bp Prescriptions: - ondansetron 4 mg Oral Tablet,disintegrating - take 1 tablet by ORAL route every 4 to 6 hours As needed; 30 tablet; Refills: jmm 0, Product Selection Permitted - tamsulosin 0.4 mg Oral capsule - take 1 capsule by ORAL route daily; 10 capsule; Refills: 0, Product Selection [facility] Permitted - Ultracet 37.5-325 mg Oral Tablet - take 1 tablet by ORAL route every 6 hours - for up to 5 days; do not exceed 8 jmm tablets per day.; 30 tablet; Refills: 0, Product Selection Permitted - Diclofenac Sodium 75 mg Oral Tablet Sustained Release - take 1 tablet by ORAL route 2 times per day; 30 tablet; Refills: 0, Product jm Selection Permitted Signatures: Dispatcher [employer] Kenrick Eubanks PA PA dukem Israel Oh MD MD rn Mitchel Montes RN RN bp
--- NOTE | 2022-12-17 10:52 | ER ---
Nurse's Notes [facility] Name: Jonathon Soliz Age: 52 yrs Sex: Male : 1970 Arrival Date: 12/17/2022 Time: 07:59 Bed 20 Private MD: Diagnosis: Calculus of ureter Presentation: 12/17 08:07 Chief complaint: Patient states: ABDOMINAL PAIN SINCE Y/D. Coronavirus screen: At this bp time, the client does not indicate any symptoms associated with coronavirus-19. Ebola Screen: No symptoms or risks identified at this time. Initial Sepsis Screen: Does the patient meet any 2 criteria? No. Patient's initial sepsis screen is negative. Does the patient have a suspected source of infection? No. Patient's initial sepsis screen is negative. Risk Assessment: Do you want to hurt yourself or someone else? Patient reports no desire to harm self or others. Onset of symptoms is unknown. 08:07 Method Of Arrival: Ambulatory bp 08:07 Acuity: JOSE 3 bp Triage Assessment: 08:07 General: Appears uncomfortable, Behavior is calm, cooperative, appropriate for age. bp Pain: Complains of pain in abdomen. EENT: No deficits noted. Neuro: No deficits noted. Cardiovascular: No deficits noted. Respiratory: No deficits noted. GI: Reports lower abdominal pain. : No signs and/or symptoms were reported regarding the genitourinary system. Derm: No deficits noted. Musculoskeletal: No deficits noted. Historical: - Allergies: 08:09 No Known Allergies; bp - Home Meds: 08:09 azelastine 137 mcg (0.1 %) intranasal Aerosol, [place] 2 times per day [Active]; bp betahistine (bulk) 1 cap twice a day [Active]; budesonide 0.5 mg/2 mL inhalation Suspension for Nebulization daily [Active]; bupropion HCl 300 mg Oral Tablet, Extended Release 24 hr every morning [Active]; buspirone 10 mg Oral tablet 2 times per day [Active]; fluticasone propionate 50 mcg/actuation intranasal spray, suspension 2 times per day [Active]; triamterene-hydrochlorothiazid 37.5-25 mg Oral tablet once [Active]; propranolol 60 mg Oral Capsule, ER 24 hr daily [Active]; testosterone cypionate 200 mg/mL intramuscular oil 0.25 mL every week [Active]; - PMHx: 08:09 Hearing Loss; Meniere's; Vertigo; bp - PSHx: 08:09 Lasik eye sx; Right wrist sx; Vasectomy; bp - Immunization history:: Adult Immunizations up to date. - Social history:: Smoking status: Patient denies any tobacco usage or history of. Screenin:07 [facility] ED Fall Risk Assessment (Adult) History of falling in the last 3 months, bp including since admission Yes- physiologic fall (2 pts). Abuse screen: Denies threats or abuse. Denies injuries from another. Nutritional screening: No deficits noted. Tuberculosis screening: No symptoms or risk factors identified. Assessment: 08:07 General: SEE TRIAGE NOTE. bp 09:13 Reassessment: PT TO CT. bp 11:13 Reassessment: PT DC HOME. bp Vital Signs: 08:07 BP 176 / 104; Pulse 53; Resp 16; Temp 98; Pulse Ox 99% ; Weight 102.06 kg; Height 5 ft. bp 11 in. ; 09:13 BP 165 / 104; Pulse 56; Resp 16; Pulse Ox 99% ; bp 11:13 BP 118 / 75; Pulse 56; Resp 16; Pulse Ox 99% ; bp 08:07 Body Mass Index 31.38 (102.06 kg, 180.34 cm) bp ED Course: 08:00 Patient arrived in ED. rg4 08:04 Mitchel Montes, JACEY is Primary Nurse. bp 08:05 Kenrick Vinson PA is PHCP. jmm 08:05 Israel Oh MD is Attending Physician. jmm 08:07 Arm band placed on. bp 08:07 Patient has correct armband on for positive identification. Bed in low position. Call bp light in reach. Side rails up X2. 08:07 Inserted saline lock: 20 gauge in right antecubital area, using aseptic technique. bp Blood collected. 08:09 Triage completed. bp 09:15 CT Abd/Pelvis - IV Contrast Only In Process Unspecified. EDMS 10:51 uRpert Iverson MD is Referral Physician. jmm 11:14 No provider procedures requiring assistance completed. IV discontinued, intact, bp bleeding controlled, No redness/swelling at site. Pressure dressing applied. Administered Medications: 08:15 Drug: NS 0.9% IV 1000 ml Route: IV; Rate: 1 bolus; Site: right antecubital; bp 11:15 Follow up: IV Status: Completed infusion; IV Intake: 1000ml bp 08:15 Drug: Ondansetron IVP 4 mg Route: IVP; Site: right antecubital; bp 09:47 Follow up: Response: No adverse reaction bp 08:15 Drug: morphine IVP or IV 4 mg Route: IVP; Infused Over: 4 mins; Site: right antecubital;bp 09:47 Follow up: Response: No adverse reaction bp 09:12 Drug: Ketorolac IVP 30 mg Route: IVP; Site: right antecubital; bp 09:47 Follow up: Response: No adverse reaction bp 09:12 Drug: Promethazine IVP 12.5 mg Route: IVP; Site: right antecubital; bp 09:47 Follow up: Response: No adverse reaction bp 10:15 Drug: Magnesium Sulfate IVPB 1 grams Route: IVPB; Infused Over: 1 hrs; Site: right bp antecubital; 11:14 Follow up: IV Status: Completed infusion; IV Intake: 100ml bp 10:15 Drug: Flomax PO 0.4 mg Route: PO; bp 11:15 Follow up: Response: No adverse reaction bp Medication: 08:07 VIS not applicable for this client. bp Intake: 11:14 IV: 100ml; Total: 100ml. bp 11:15 IV: 1000ml; Total: 1100ml. bp Outcome: 10:51 Discharge ordered by . melly 11:14 Discharged to home ambulatory, with family. bp 11:14 Condition: stable 11:14 Discharge instructions given to patient, Instructed on discharge instructions, follow up and referral plans. medication usage, Demonstrated understanding of instructions, follow-up care, medications, Prescriptions given X 4. 11:15 Patient left the ED. bp Signatures: Dispatcher [employer] EDMS Kenrick Vinson PA PA jmm Garcia, Rubi rg4 Mitchel Montes, RN RN bp
[2022-12-17 11:23] VITALS: TEMP 98; O2SAT 99
[2022-12-17 11:25] VITALS: BP 118/75
== END 2022-12-17 11:15 | disposition home or self-care (01) ==
LOC: ER 07:59
DX: N20.1 Calculus of ureter (principal)
CPT/HCPCS: 96365; 96361; 85025; 81001; 36415; 83690; 80053; 74177; 96375; 99284; Q9967; J2550; J3475; J2405; J7030

== ENCOUNTER 2024-06-30 16:21 | Emergency (ER) | payer OTHER ==
[2024-06-30] MEDS ORDERED: ALBUTEROL 2.5 MG/3 ML NEB SOL ONE (17:12)
[2024-06-30] MEDS ORDERED: METHYLPREDNISOLONE 125 MG INJ ONE (17:12)
[2024-06-30] MEDS ORDERED: NA CHLORIDE 0.9% 1,000 ML ONE (17:12)
[2024-06-30] MEDS ORDERED: ACETAMINOPHEN 500 MG TAB ONE (17:12)
[2024-06-30] MEDS ORDERED: IPRATROPIUM BROM 0.5MG/2.5ML ONE (17:12)
[2024-06-30 17:16] LABS: Absolute Eosinophils 0.2 K/uL (0-0.5); Absolute Monocytes 1.5 K/uL (0.1-1.3); Absolute Neutrophil 7.5 K/uL (1.8-8.0); Basophils % 0.4 % (0-1.3); Eosinophils % 1.8 % (0-4.4); Hematocrit 52.2 % (39.6-49.0); Hemoglobin 17.7 g/dL (13.6-17.9); Lymphocytes % 10.1 % (15.3-44.8); MCH 29.5 pg (27.0-35.0); MCHC 33.9 g/dL (32.0-36.0); MCV 87.1 fL (80-100); MPV 7.8 fL (7.6-11.3); Monocytes % 14.3 % (3.3-12.3); Neutrophils % 73.4 % (41.7-73.7); Nucleated Red Blood Cells % 0.1 % (0-0); Platelets 210 thou/uL (152-406); RBC Red Blood Cell Count 5.99 M/uL (4.33-5.43); Red Cell Distribution Width 12.8 % (12.1-15.2)
[2024-06-30] MEDS ORDERED: ONDANSETRON 4 MG/2 ML VIAL ONE (17:16)
--- NOTE | 2024-06-30 17:26 | RAD REPORT ---
EXAMINATION: ONE VIEW CHEST XR CLINICAL INDICATION: Congestion;Cough TECHNIQUE: Frontal chest projection is submitted. Examination is limited by patient positioning and t echnique. COMPARISON: 10/23/2021 FINDINGS: Interstitial lung opacities are present bilaterally which may indicate viral infection or chronic bro nchitis. No focal consolidation typical of pneumonia is seen. The heart is normal in size. No displaced fractures identified.
[2024-06-30 17:27] LABS: PTT, Activated Partial Thromb 32.7 SECONDS (24.3-36.9); Protime INR 0.98
[2024-06-30 17:34] LABS: Albumin 4.1 g/dL (3.4-5.0); Albumin/Globulin Ratio 1.2 (1.1-1.8); Anion Gap 10.3 mEq/L (5.0-15.0); Bilirubin Total 0.5 mg/dL (0.2-1.0); Globulin 3.4 g/dL (2.3-3.5); Potassium 3.3 mEq/L (3.5-5.1); Protein, Total 7.5 g/dL (6.4-8.2)
[2024-06-30 17:37] LABS: SARS-CoV-2 Antigen CONTROL BLUE LINE VIS/BG OK; SARS-CoV-2 Antigen Rapid Res Negative (Negative)
[2024-06-30] MEDS ORDERED: IBUPROFEN 200 MG TAB PO ONE (17:56)
[2024-06-30] MEDS ORDERED: NA CHLORIDE 0.9% 50 ML ONE (18:59)
[2024-06-30] MEDS ORDERED: CEFTRIAXONE 1000 MG/VIAL ONE (18:59)
--- NOTE | 2024-06-30 18:59 | ER ---
Nurse's Notes [facility] Name: Jonathon Soliz Age: 53 yrs Sex: Male : 1970 Arrival Date: 06/30/2024 Time: 16:21 Bed 12 Private MD: Diagnosis: Cough;Fever, unspecified Presentation: 06/30 16:34 Chief complaint: Cough, congestion, SOB, chest tightness, chills, dizziness, and hb fatigue since last night. Coronavirus screen: Client presents with at least one sign or symptom that may indicate coronavirus-19. Provider contacted for isolation considerations. Ebola Screen: No symptoms or risks identified at this time. Initial Sepsis Screen: Does the patient meet any 2 criteria? No. Patient's initial sepsis screen is negative. Does the patient have a suspected source of infection? No. Patient's initial sepsis screen is negative. Risk Assessment: Do you want to hurt yourself or someone else? Patient reports no desire to harm self or others. Onset of symptoms was June 29, 2024. 16:34 Method Of Arrival: Ambulatory hb 16:34 Acuity: JOSE 2 hb Historical: - Allergies: 16:37 No Known Allergies; hb - PMHx: 16:37 Hearing Loss; Vertigo; Meniere's; hb - PSHx: 16:37 Lasik eye sx; Right wrist sx; Vasectomy; hb - Immunization history:: Adult Immunizations up to date. - Infectious Disease History:: Denies. - Social history:: Smoking status: Patient denies any tobacco usage or history of. Screenin:09 [facility] ED Fall Risk Assessment (Adult) History of falling in the last 3 months, kc6 including since admission No falls in past 3 months (0 pts) Confusion or Disorientation No (0 pts) Intoxicated or Sedated No (0 pts) Impaired Gait No (0 pts) Mobility Assist Device Used No (0 pt) Altered Elimination No (0 pt) Score/Fall Risk Level 0 - 2 = Low Risk Oriented to surroundings, Maintained a safe environment. Abuse screen: Denies threats or abuse. Denies injuries from another. Nutritional screening: No deficits noted. Tuberculosis screening: No symptoms or risk factors identified. Assessment: 16:45 General: Appears in no apparent distress. uncomfortable, well groomed, well developed, ss Behavior is calm, cooperative, appropriate for age, Reports feeling ill for 12-24 hours. Pain: Complains of pain in chest. Neuro: Level of Consciousness is awake, alert, obeys commands, Oriented to person, place, time, situation, Appropriate for age Reports dizziness, weakness. Cardiovascular: Reports chest pain, Heart tones S1 S2 present Capillary refill < 3 seconds Rhythm is regular. Respiratory: Reports shortness of breath at rest on exertion cough that is non-productive, dry, Airway is patent Trachea midline Respiratory effort is even, unlabored, Respiratory pattern is regular, symmetrical, Breath sounds are diminished bilaterally. GI: Reports nausea, Patient currently denies abdominal pain, diarrhea, vomiting. : No signs and/or symptoms were reported regarding the genitourinary system. EENT: No signs and/or symptoms were reported regarding the EENT system. Derm: No signs and/or symptoms reported regarding the dermatologic system. Skin is intact, is healthy with good turgor, Skin is pink, warm \T\ dry. Musculoskeletal: No signs and/or symptoms reported regarding the musculoskeletal system. Circulation, motion, and sensation intact. Capillary refill < 3 seconds, Range of motion: intact in all extremities. 17:56 Reassessment: Patient appears in no apparent distress at this time. No changes from ss previously documented assessment. Patient and/or family updated on plan of care and expected duration. Pain level reassessed. Patient is alert, oriented x 3, equal unlabored respirations, skin warm/dry/pink. 18:18 Reassessment: Patient appears in no apparent distress at this time. No changes from kc6 previously documented assessment. Patient and/or family updated on plan of care and expected duration. Pain level reassessed. Patient is alert, oriented x 3, equal unlabored respirations, skin warm/dry/pink. 19:36 Reassessment: Patient appears in no apparent distress at this time. Patient states kl feeling better. Patient states symptoms have improved. Vital Signs: 16:34 BP 180 / 130; Pulse 107; Resp 24; Temp 100.7; Pulse Ox 100% on R/A; Weight 108.86 kg; hb Height 5 ft. 10 in. ; Pain 7/10; 17:09 BP 128 / 75; Pulse 101; Resp 19 S; Pulse Ox 100% on R/A; kc6 17:58 BP 133 / 86; Pulse 105; Resp 19 S; Temp 101.2(O); Pulse Ox 95% on R/A; ss 18:57 Temp 100.7(O); kc6 16:34 Body Mass Index 34.44 (108.86 kg, 177.8 cm) hb 16:34 Pain Scale: Adult hb ED Course: 16:22 Patient arrived in ED. mg5 16:34 Domen[facility] Mccormick [facility]C [facility] kb 16:34 Germán Andrews MD is Attending Physician. kb 16:37 Triage completed. hb 16:37 Arm band placed on. hb 16:41 Aide Lobato RN is Primary Nurse. kc6 17:09 Patient has correct armband on for positive identification. Bed in low position. Call kc6 light in reach. Side rails up X 1. Pulse ox on. NIBP on. Door closed. Noise minimized. Lights dimmed. Pillow given. 17:09 Inserted saline lock: 18 gauge in right antecubital area, using aseptic technique. kc6 Blood collected. Flushed with 10 mL NS. Patient maintains SpO2 saturation greater than 95% on room air. 17:16 Chest Single View XRAY In Process Unspecified. EDMS 19:36 No provider procedures requiring assistance completed. IV discontinued, intact, kl bleeding controlled, No redness/swelling at site. Pressure dressing applied. Administered Medications: 17:19 Drug: NS 0.9% IV 1000 ml IV at 1000 ml once; to be given as a bolus over 60 minutes kc6 Route: IV; Rate: 1000 ml; Site: right antecubital; 18:58 Follow up: Response: No adverse reaction; IV Status: Completed infusion; IV Intake: kc6 1000ml 17:19 Drug: Acetaminophen PO 1000 mg PO once Route: PO; kc6 17:58 Follow up: Response: No adverse reaction; Temperature is increased ss 17:19 Drug: MethylPrednisoLONE IVP 125 mg IVP once Route: IVP; Site: right antecubital; kc6 17:36 Follow up: Response: No adverse reaction kc6 17:20 Drug: Albuterol Inhalation 2.5 mg Inhalation once Route: Inhalation; kc6 17:20 Drug: Ipratropium Inhalation Aerosol 0.5 mg Inhalation once Route: Inhalation; kc6 17:20 Drug: Ondansetron IVP 4 mg IVP once; over 2 minutes Route: IVP; Site: right antecubital;kc6 17:36 Follow up: Response: No adverse reaction; Nausea is decreased kc6 18:02 Drug: Ibuprofen PO 600 mg PO once Route: PO; kc6 18:58 Follow up: Response: No adverse reaction; Temperature is decreased kc6 19:36 Follow up: Response: No adverse reaction kl 19:03 Drug: Rocephin IV 1 grams IV at calculated rate once; Given slow IV push per pharmacy kc6 instructions Route: IV; Rate: calculated rate; Site: right antecubital; 19:36 Follow up: Response: No adverse reaction kl Intake: 18:58 IV: 1000ml; Total: 1000ml. kc6 Outcome: 18:58 Discharge ordered by . kacie 19:37 Discharged to home ambulatory, with family, with significant other, kl 19:37 Condition: improved 19:37 Discharge instructions given to patient, Instructed on discharge instructions, follow up and referral plans. medication usage, Demonstrated understanding of instructions, follow-up care, medications, Prescriptions given X 3, 19:37 Patient left the ED. kl Signatures: Dispatcher [employer] EDMS Domenica Mccormick, MAINTENANCE PERSON-C MAINTENANCE PERSON-CkSalma Hunt RN RN Nia Bailey RN RN ss Baxter, Heather, RN RN hb Campbell, Kaitlyn, RN RN kc6 [place], [place] mg5
--- NOTE | 2024-06-30 18:59 | EDPHYS ---
Physician Documentation [facility] Name: Jonathon Soliz Age: 53 yrs Sex: Male : 1970 Arrival Date: 06/30/2024 Time: 16:21 Bed 12 Private MD: ED Physician Germán Andrews HPI: 06/30 22:47 This 53 yrs old Male presents to ER via Ambulatory with complaints of Dizziness, kb Breathing Difficulty, Chest Tightness. 22:47 Patient is a 53-year-old male who presents for cough, congestion, chills, fatigue, kb malaise, dizziness, shortness of breath, chest tightness that all started about 3 days ago and got worse today. States he had to leave work because of the dizziness. Denies any alleviating or aggravating factors.. Historical: - Allergies: 16:37 No Known Allergies; hb - PMHx: 16:37 Hearing Loss; Vertigo; Meniere's; hb - PSHx: 16:37 Lasik eye sx; Right wrist sx; Vasectomy; hb - Immunization history:: Adult Immunizations up to date. - Infectious Disease History:: Denies. - Social history:: Smoking status: Patient denies any tobacco usage or history of. ROS: 17:03 Constitutional: As per HPI kb Exam: 17:18 Constitutional: This is a well developed, well nourished patient who is awake, alert, kb and in no acute distress. Head/Face: Normocephalic, atraumatic. ENT: Moist Mucous membranes Cardiovascular: Regular rate Respiratory: Respirations even and unlabored. No increased work of breathing. Talking in full sentences Abdomen/GI: Soft, non-tender. No distention Skin: Warm, dry with normal turgor. Normal color. MS/ Extremity: Pulses equal, no cyanosis. Neurovascular intact. Full, normal range of motion. Neuro: Awake and alert, GCS 15, oriented to person, place, time, and situation. 17:18 ECG was reviewed by the Attending Physician. Vital Signs: 16:34 BP 180 / 130; Pulse 107; Resp 24; Temp 100.7; Pulse Ox 100% on R/A; Weight 108.86 kg; hb Height 5 ft. 10 in. ; Pain 7/10; 17:09 BP 128 / 75; Pulse 101; Resp 19 S; Pulse Ox 100% on R/A; kc6 17:58 BP 133 / 86; Pulse 105; Resp 19 S; Temp 101.2(O); Pulse Ox 95% on R/A; ss 18:57 Temp 100.7(O); kc6 16:34 Body Mass Index 34.44 (108.86 kg, 177.8 cm) hb 16:34 Pain Scale: Adult hb MDM: 16:34 Medical Screening Exam initiated kb 18:57 Data reviewed: vital signs, nurses notes. kb 22:48 Differential Diagnosis: Other Flu, COVID, URI, bronchitis, pneumonia. Consideration of kb Admission/Observation Escalation of care including admission/observation considered. Admission considered but patient is nontoxic in appearance, tolerating p.o. intake, respirations even and unlabored. Discussed outpatient treatment with patient. Patient in agreement. Educated on return precautions.. Counseling: I had a detailed discussion with the patient and/or guardian regarding the historical points, exam findings, and any diagnostic results supporting the discharge/admit diagnosis, lab results, radiology results, the need for outpatient follow up, a family practitioner, to return to the emergency department if symptoms worsen or persist or if there are any questions or concerns that arise at home. 06/30 16:39 Order name: Blood Culture Adult (2) kb 06/30 16:39 Order name: CBC with Diff; Complete Time: 17:24 kb 06/30 16:39 Order name: CMP; Complete Time: 17:35 kb 06/30 16:39 Order name: Lactate w/ 2H reflex if indic.; Complete Time: 17:37 kb 06/30 16:39 Order name: Protime (+inr); Complete Time: 17:29 kb 06/30 16:39 Order name: Ptt, Activated; Complete Time: 17:29 kb 06/30 16:39 Order name: Flu; Complete Time: 17:44 kb 06/30 16:39 Order name: SARS-COV-2 Antigen Rapid; Complete Time: 17:42 kb 06/30 17:55 Order name: Troponin High Sensitivity; Complete Time: 18:39 kb 06/30 16:39 Order name: Chest Single View XRAY; Complete Time: 17:27 kb 06/30 16:39 Order name: Accucheck; Complete Time: 17:09 kb 06/30 16:39 Order name: EKG - Nurse/Tech; Complete Time: 16:50 kb 06/30 16:39 Order name: IV Saline Lock - Large Bore; Complete Time: 17:09 kb 06/30 16:39 Order name: Labs collected and sent; Complete Time: 17:09 kb 06/30 16:39 Order name: O2 Per Protocol; Complete Time: 16:41 kb 06/30 16:39 Order name: O2 Sat Monitoring; Complete Time: 16:41 kb 06/30 16:39 Order name: Vital Signs; Complete Time: 16:41 kb EC:18 Rate is 95 beats/min. Rhythm is regular. QRS [place] is Normal. RI interval is prolonged kb at 212 msec. QRS interval is normal at 106 msec. QT interval is normal at 404 msec. Administered Medications: 17:19 Drug: NS 0.9% IV 1000 ml IV at 1000 ml once; to be given as a bolus over 60 minutes kc6 Route: IV; Rate: 1000 ml; Site: right antecubital; 18:58 Follow up: Response: No adverse reaction; IV Status: Completed infusion; IV Intake: kc6 1000ml 17:19 Drug: Acetaminophen PO 1000 mg PO once Route: PO; kc6 17:58 Follow up: Response: No adverse reaction; Temperature is increased ss 17:19 Drug: MethylPrednisoLONE IVP 125 mg IVP once Route: IVP; Site: right antecubital; kc6 17:36 Follow up: Response: No adverse reaction kc6 17:20 Drug: Albuterol Inhalation 2.5 mg Inhalation once Route: Inhalation; kc6 17:20 Drug: Ipratropium Inhalation Aerosol 0.5 mg Inhalation once Route: Inhalation; kc6 17:20 Drug: Ondansetron IVP 4 mg IVP once; over 2 minutes Route: IVP; Site: right antecubital;kc6 17:36 Follow up: Response: No adverse reaction; Nausea is decreased kc6 18:02 Drug: Ibuprofen PO 600 mg PO once Route: PO; kc6 18:58 Follow up: Response: No adverse reaction; Temperature is decreased kc6 19:36 Follow up: Response: No adverse reaction 19:03 Drug: Rocephin IV 1 grams IV at calculated rate once; Given slow IV push per pharmacy kc6 instructions Route: IV; Rate: calculated rate; Site: right antecubital; 19:36 Follow up: Response: No adverse reaction kl Disposition Summary: 06/30/24 18:58 Discharge Ordered Notes: Location: Home kb Condition: Stable kb Diagnosis - Cough kb - Fever, unspecified kb Followup: kb - With: Emergency Department - When: As needed - Reason: Worsening of condition Followup: kb - With: Private Physician - When: 2 - 3 days - Reason: Recheck today's complaints, Continuance of care, Re-evaluation by your physician Discharge Instructions: - Discharge Summary Sheet kb - Cough, Adult, [id number] kb - Viral Respiratory Infection, [id number] kb Forms: - Medication Reconciliation Form kb - Antibiotic Education kb - Prescription Opioid Use kb - Patient Portal Instructions kb - Leadership Thank You Letter kb Prescriptions: - albuterol sulfate 90 mcg/actuation Inhalation HFA Aerosol Inhaler - inhale 2 puff INHALATION route every 4 to 6 hours As needed; 1 Unspecified; kb Refills: 0, Product Selection Permitted - Prednisone 20 mg Oral Tablet - take 1 tablet ORAL route once daily for 5 days; 5 tablet; Refills: 0, Product kb Selection Permitted - Zithromax 500 mg Oral Tablet - take 1 tablet ORAL route once daily for 5 days; 5 tablet; Refills: 0, Product kb Selection Permitted Signatures: Dispatcher [employer] EDDomenica Vivas, TRACTOR OPERATOR HELPER-C TRACTOR OPERATOR HELPER-Ckb Alisia Mccatrhy, RN RN Aide Lobato RN RN kc6 Salma Crowe RN kl Nia Oliveira RN ss Corrections: (The following items were deleted from the chart) 16:39 16:39 BLOOD CULTURE*+BA.LAB.BRZ ordered. EDMS EDMS 16:39 16:39 CBC+H.LAB.BRZ ordered. EDMS EDMS 16:39 16:39 COMPREHENSIVE METABOLIC PANEL+C.LAB.BRZ ordered. EDMS EDMS 16:39 16:39 LACTATE+C.LAB.BRZ ordered. EDMS EDMS 16:39 16:39 PROTIME (+INR)+COAG.LAB.BRZ ordered. EDMS EDMS 16:39 16:39 PTT, ACTIVATED+COAG.LAB.BRZ ordered. EDMS EDMS 16:39 16:39 Influenza Screen (A \T\ B)+BA.LAB.BRZ ordered. EDMS EDMS 16:39 16:39 SARS-COV-2 Antigen Rapid+I.LAB.BRZ ordered. EDMS EDMS 16:39 16:39 Chest Single View+RAD.RAD.BRZ ordered. EDMS EDMS 17:55 17:55 Troponin High Sensitivity+C.LAB.BRZ ordered. EDMS EDMS
[2024-06-30 20:32] VITALS: BP 133/86; O2SAT 95
[2024-06-30 20:33] VITALS: TEMP 100.7
--- NOTE | 2024-07-04 14:18 | EKG ---
Test Date: 2024-06-30 Test Time: 16:48:38 Finish Sander: RYLEE MEASUREMENT RESULTS: Intervals: Rate: 95 OK: 212 QRSD: 106 QT: 322 QTc: 404 [place]: P: 48 OK: 212 QRS: -12 T: 32 INTERPRETIVE STATEMENTS: Sinus rhythm with 1st degree AV block Septal infarct, age undetermined Abnormal ECG Compared to ECG 03/22/2021 14:35:39 First degree AV block now present Myocardial infarct finding still present Electronically Signed On 07-04-24 14:15:22 ENGINEERING PROGRAMMER by Pawan Matias
== END 2024-06-30 19:37 | disposition home or self-care (01) ==
LOC: ER 16:21
DX: R05.9 Cough, unspecified (principal); R50.9 Fever, unspecified; Z11.52 Encounter for screening for COVID-19
CPT/HCPCS: 96361; 93005; 87040 ×2; 85025; 36415; 85610; 83605; 85730; 84484; 80053; 87804 ×2; 71045; 96375; 96374; 99285; 87811; J7613; J7644; J2919; J2405; J7030; J0696

== ENCOUNTER 2024-10-04 19:10 | Emergency (ER) | payer OTHER ==
[2024-10-04] MEDS ORDERED: DIAZEPAM 5 MG TABLET ONE (19:53)
[2024-10-04] MEDS ORDERED: LIDOCAINE 1% 20 ML MDV ONE (19:53)
--- NOTE | 2024-10-04 20:46 | RAD REPORT ---
EXAM: Hand Left 3 View HISTORY: Swelling;Pain COMPARISON: None FINDINGS: Bones: Mildly comminuted but nondisplaced fracture at the second middle phalanx. No intra-articular e xtension. Question remote fifth metacarpal fracture. Alignment:No significant malalignment. Degenerative changes:Scattered degenerative changes are present the interphalangeal joints. Other: n/a IMPRESSION: Nondisplaced fracture at the second middle phalanx. No intra-articular extension.
--- NOTE | 2024-10-04 21:11 | EDPHYS ---
Physician Documentation [facility] Name: Jonathon Soliz Age: 54 yrs Sex: Male : 1970 Arrival Date: 10/04/2024 Time: 19:10 Bed 12 Private MD: ED Physician Israel Oh HPI: 10/04 22:25 This 54 yrs old Male presents to ER via Ambulatory with complaints of Finger dr5 Injury. 22:25 Trauma demographics: Location of Injury: The injury occurred at home, Time: 06:30. dr5 Mechanism of injury: Car Door Slammed. Associated injuries: The patient sustained laceration. Patient is a 54-year-old male with history of vertigo coming in with left laceration to anterior and posterior second digit after being slammed by a car door. Patient reports he had a tetanus shot 2 years ago. Patient denies taking medication prior to arrival. Historical: - Allergies: 19:30 No Known Allergies; me1 - PMHx: 19:30 Hearing Loss; Vertigo; Meniere's; me1 - PSHx: 19:30 Lasik eye sx; Right wrist sx; Vasectomy; left rotator cuff surgery (Unknown); vasectomy me1 reversal (Vasectomy); - Immunization history:: Adult Immunizations up to date. - Infectious Disease History:: Denies. - Social history:: Smoking status: Patient denies any tobacco usage or history of. ROS: 22:25 Constitutional: as per hpi dr5 Exam: 22:25 Constitutional: This is a well developed, well nourished patient who is awake, alert, dr5 and in no acute distress. Head/Face: Normocephalic, atraumatic. Eyes: Pupils equal round and reactive to light, extra-ocular motions intact. Lids and lashes normal. Conjunctiva and sclera are non-icteric and not injected. Cornea within normal limits. Periorbital areas with no swelling, redness, or edema. Neck: Trachea midline, no thyromegaly or masses palpated, and no cervical lymphadenopathy. Supple, full range of motion without nuchal rigidity, or vertebral point tenderness. No Meningismus. Chest/axilla: Normal chest wall appearance and motion. Nontender with no deformity. No lesions are appreciated. Cardiovascular: Regular rate and rhythm with a normal S1 and S2. Normal PMI, no JVD. No pulse deficits. Respiratory: Lungs have equal breath sounds bilaterally, clear to auscultation. No rales, rhonchi or wheezes noted. No increased work of breathing, no retractions or nasal flaring. Back: No spinal tenderness. No costovertebral tenderness. Full range of motion. Skin: Warm, dry with normal turgor. Normal color with no rashes, no lesions, and no evidence of cellulitis. Neuro: Awake and alert, GCS 15, oriented to person, place, time, and situation. Cranial nerves II-XII grossly intact. Motor strength 5/5 in all extremities. Sensory grossly intact. Cerebellar exam normal. Normal gait. 22:25 Skin: injury, laceration(s), the wound is approximately 2 cm(s), with a depth of 1 cm(s), of the dorsal aspect of middle phalanx of left index finger, the second wound is approximately 2 cm(s), with a depth of 1 cm(s), of the palmar aspect of middle phalanx of left index finger, Vital Signs: 19:28 BP 143 / 94; Pulse 51; Resp 18; Temp 98.4; Pulse Ox 99% ; Weight 104.33 kg; Height 5 me1 ft. 11 in. ; Pain 7/10; 19:28 Body Mass Index 32.08 (104.33 kg, 180.34 cm) me1 19:28 Pain Scale: Adult me1 Procedures: 22:25 Splinting: Splint applied to left hand and left index finger using finger splint, dr5 applied by nurse. post reduction film - Examined by me, post splint application: neurovascular intact, 2+ distal pulses palpable, brisk capillary refill noted, Patient tolerated well. Laceration: 22:25 Wound Repair of 2cm ( 0.8in ) subcutaneous laceration to palmar aspect of middle dr5 phalanx of left index finger. Linear shaped.. Distal neuro/vascular/tendon intact. Anesthesia: Regional Block with 3 mls of 1% lidocaine. Wound prep: Moderate cleansing by me, Copious irrigation. Skin closed with 3 4-0 Prolene using simple sutures and sterile technique. Dressed with non-adherent dressing. Patient tolerated well. 22:25 Wound Repair of 2cm ( 0.8in ) subcutaneous laceration to dorsal aspect of middle dr5 phalanx of left index finger. Linear shaped.. Hemostasis noted.. Distal neuro/vascular/tendon intact. Anesthesia: Regional Block with 3 mls of 1% lidocaine. Wound prep: Moderate cleansing, Copious irrigation. Skin closed with 3 4-0 Prolene using simple sutures and sterile technique. Dressed with non-adherent dressing. Patient tolerated well. MDM: 19:14 Medical Screening Exam initiated dr5 22:25 Differential diagnosis: extremity fracture, Laceration, Contusion. Data reviewed: vital dr5 signs, nurses notes. I considered the following discharge prescriptions or medication management in the emergency department Medications were administered in the Emergency Department. See MAR. Historians other than the Patient: Spouse/Significant Other: . Care significantly affected by the following Social Determinants of Health: Poor access to healthcare and/or lack of insurance, Poor access to transportation, Problems related to employment. Counseling: I had a detailed discussion with the patient and/or guardian regarding the historical points, exam findings, and any diagnostic results supporting the discharge/admit diagnosis, the presence of at least one elevated blood pressure reading (>120/80) during this emergency department visit, the need for outpatient follow up, for definitive care, a family practitioner, to return to the emergency department if symptoms worsen or persist or if there are any questions or concerns that arise at home. Medication response: Valium, Lidocaine. Response to treatment: the patient's symptoms have resolved after treatment. ED course: Patient reports that he faints whenever he has procedures done with needles. I gave him Valium 5 mg p.o. to prevent syncope and decrease anxiety. I gave patient option to wait for x-ray or go ahead and digital block now and he prefers to be digitally blocked before the x-ray. Digital block completed with anesthesia achieved. 6 sutures total placed in 2 lacerations as previously documented. Patient has appointment with his orthopedic physician next week and will follow-up for suture removal then. Keflex was prescribed to prevent infection. Patient was also placed in finger splint given fracture. All questions answered and patient is agreeable to plan.. 10/04 19:54 Order name: Hand Left 3 View XRAY; Complete Time: 21:06 dr5 10/04 19:45 Order name: Dressing - Wound; Complete Time: : dr5 10/04 19:45 Order name: Prolene, Sutures: 4-0; Complete Time: 21:22 dr5 10/04 19:45 Order name: Setup Suture Tray; Complete Time: dr5 10/04 21:07 Order name: Finger Splint; Complete Time: 21:18 dr5 Administered Medications: 19:55 Drug: Lidocaine Infiltration (1 %) 20 ml 20 ml Infiltration once; to bedside {Note: cm10 Given by provider..} Volume: 20 ml; Route: Infiltration; 19:55 Drug: Diazepam PO 5 mg PO once Route: PO; cm10 21:18 Follow up: Response: No adverse reaction cm10 Disposition: 10/05 09:01 Co-signature as Attending Physician, Israel Oh MD I reviewed the patient's care rn provided by the Advanced Practice Provider and agree with the diagnosis and treatment plan. Disposition Summary: 10/04/24 21:10 Discharge Ordered Notes: Location: Home dr5 Condition: Stable dr5 Diagnosis - Laceration without foreign body of left index finger without damage to nail dr5 Followup: dr5 - With: Emergency Department - When: As needed - Reason: Worsening of condition Followup: dr5 - With: Private Physician - When: 1 - 2 days - Reason: Recheck today's complaints, Continuance of care, Re-evaluation by your physician Discharge Instructions: - Discharge Summary Sheet dr5 - Finger Fracture, Adult dr5 - Laceration Care, Adult dr5 Forms: - Medication Reconciliation Form dr5 - Antibiotic Education dr5 - Patient Portal Instructions dr5 - Leadership Thank You Letter dr5 Prescriptions: - Cephalexin 500 mg Oral capsule - take 1 capsule ORAL route every 12 hours for 7 days; 14 capsule; Refills: 0, dr5 Product Selection Permitted Signatures: Dispatcher [employer] Israel Pereira MD MD rn Martinez, Clarissa, RN RN cm10 Ashley Meléndez RN RN ok1 Sam May, THERMODYNAMICIST-C THERMODYNAMICIST-Cdr5
--- NOTE | 2024-10-04 21:11 | ER ---
Nurse's Notes [facility] Name: Jonathon Soliz Age: 54 yrs Sex: Male : 1970 Arrival Date: 10/04/2024 Time: 19:10 Bed 12 Private MD: Diagnosis: Laceration without foreign body of left index finger without damage to nail Presentation: 10/04 19:28 Chief complaint: Patient states: caught his left first digit in the door. Laceration me1 noted. Bleeding controlled. Pain 02/10. Coronavirus screen: Vaccine status: Patient reports being unvaccinated. Ebola Screen: No symptoms or risks identified at this time. Initial Sepsis Screen: Does the patient meet any 2 criteria? No. Patient's initial sepsis screen is negative. Does the patient have a suspected source of infection? No. Patient's initial sepsis screen is negative. Risk Assessment: Do you want to hurt yourself or someone else? Patient reports no desire to harm self or others. Onset of symptoms was October 04, 2024 at 18:30. 19:28 Method Of Arrival: Ambulatory [facility] 19:28 Acuity: JOSE 4 me1 Historical: - Allergies: 19:30 No Known Allergies; me1 - PMHx: 19:30 Hearing Loss; Vertigo; Meniere's; me1 - PSHx: 19:30 Lasik eye sx; Right wrist sx; Vasectomy; left rotator cuff surgery (Unknown); vasectomy me1 reversal (Vasectomy); - Immunization history:: Adult Immunizations up to date. - Infectious Disease History:: Denies. - Social history:: Smoking status: Patient denies any tobacco usage or history of. Screenin:[facility] ED Fall Risk Assessment (Adult) History of falling in the last 3 months, cm10 including since admission No falls in past 3 months (0 pts) Confusion or Disorientation No (0 pts) Intoxicated or Sedated No (0 pts) Impaired Gait No (0 pts) Mobility Assist Device Used No (0 pt) Altered Elimination No (0 pt) Score/Fall Risk Level 0 - 2 = Low Risk Oriented to surroundings, Maintained a safe environment, Hourly rounding (assess needs \T\ fall precautionary measures) done. Abuse screen: Denies threats or abuse. Denies injuries from another. Nutritional screening: No deficits noted. Tuberculosis screening: No symptoms or risk factors identified. Assessment: 21:18 General: Appears in no apparent distress. uncomfortable, Behavior is calm, cooperative. cm10 Pain: Complains of pain in left index finger Pain currently is 7 out of 10 on a pain scale. Neuro: No deficits noted. Level of Consciousness is awake, alert, obeys commands, Oriented to person, place, time, situation, Appropriate for age. Respiratory: No deficits noted. Airway is patent Respiratory effort is even, unlabored, Respiratory pattern is regular, symmetrical. Musculoskeletal: Laceration noted to left index finger.. Injury Description: Laceration sustained to left index finger. Vital Signs: 19:28 BP 143 / 94; Pulse 51; Resp 18; Temp 98.4; Pulse Ox 99% ; Weight 104.33 kg; Height 5 me1 ft. 11 in. ; Pain 7/10; 19:28 Body Mass Index 32.08 (104.33 kg, 180.34 cm) me1 19:28 Pain Scale: Adult me1 ED Course: 19:13 Patient arrived in ED. im 19:13 Sam May FNP-C is PHCP. dr5 19:13 Israel Oh MD is Attending Physician. dr5 19:30 Triage completed. me1 19:30 Arm band placed on Patient placed in an exam room. me1 20:19 Hand Left 3 View XRAY In Process Unspecified. EDMS 21:20 Patient has correct armband on for positive identification. Provided Education on: cm10 Follow-up instructions. 21:21 Assist provider with laceration repair on left index finger using sutures. Set up tray. cm10 Performed by Sam HAYWOOD Dressed with band aid, Patient tolerated well. Patient did not have IV access during this emergency room visit. Finger splint to left index finger. Administered Medications: 19:55 Drug: Lidocaine Infiltration (1 %) 20 ml 20 ml Infiltration once; to bedside {Note: cm10 Given by provider..} Volume: 20 ml; Route: Infiltration; 19:55 Drug: Diazepam PO 5 mg PO once Route: PO; cm10 21:18 Follow up: Response: No adverse reaction cm10 Medication: 21:20 VIS not applicable for this client. cm10 Outcome: 21:10 Discharge ordered by . dr5 21:22 Discharged to home ambulatory, with significant other, cm10 21:22 Condition: good 21:22 Discharge instructions given to patient, Instructed on discharge instructions, follow up and referral plans. medication usage, wound care, Demonstrated understanding of instructions, follow-up care, medications, wound care, Prescriptions given X 1, 21:22 Patient left the ED. cm10 Signatures: Dispatcher [employer] EDKiara Etienne Clarissa, RN RN cm10 Ashley Meléndez RN RN nh1 Sam May, TARP REPAIRER-C TARP REPAIRER-Formerly Named [facility]5
[2024-10-04 21:26] VITALS: BP 143/94; TEMP 98.4; O2SAT 99
== END 2024-10-04 21:22 | disposition home or self-care (01) ==
LOC: ER 19:10
PROC: 2W3KX1Z Immobilization of Left Finger using Splint (ICD-10-PCS; principal; 2024-10-04)
DX: S61.211A Laceration without foreign body of left index finger without damage to nail, initial encounter (principal); W23.0XXA Caught, crushed, jammed, or pinched between moving objects, initial encounter
CPT/HCPCS: 12042 ×2; 29130; 73130; 99284; J2003; 12001